=== PATIENT | male | born 1975 | race Caucasian/White ===

== ENCOUNTER 2023-09-27 09:30 | Outpatient (CLI) | payer BC, SELFPAY ==
--- NOTE | ~2023-09-27 | MR_ITS ---
EXAMINATION: MR hand RT wo con DATE: 09/27/2023 10:06 INDICATION: Metacarpophalangeal joint sprain with pain in ulnar deviation of the right second-fourth fingers post surgery 6 months prior. TECHNIQUE: Magnetic resonance imaging (MRI) of the right hand was performed without intravenous contr ast. Sequences included axial, sagittal and coronal T1-weighted FSE, coronal T2-weighted FS FSE and s agittal and coronal fluid sensitive FSE STIR . COMPARISON: None FINDINGS: Complete tear of the scapholunate ligament with widening of the scapholunate interval and dorsal inte rcalated segment instability (DISI) with increased scapholunate and lunocapitate angles. There is aty pically severe osteoarthritis with subarticular edema-like signal change at the radial scaphoid artic ulation and at the midcarpal joint consistent with secondary scapholunate advanced collapse (SLAC) wr ist. Marrow signal is otherwise normal. No fracture or pathologic marrow replacing process. Less cedrick re likely mild osteoarthritis is suggested at the radial aspect of the carpus and at multiple metacar pophalangeal and interphalangeal joints although severity of joint space narrowing would be better ev aluated with plain radiographs. No joint effusions. There is mild ulnar deviation at the right second and third metacarpophalangeal joints. Remaining met acarpal phalangeal joints are normal alignment. There is also mild palmar subluxation at the second a nd fourth metacarpophalangeal joints and moderate palmar subluxation at the third metacarpophalangeal joint. There is thickening of the radial collateral ligament complex at the second-fourth metacarpop halangeal joints without surrounding edema consistent with scarring related to chronic partial tears or degeneration. Foci of susceptibility artifact are seen at the radial side of the heads of the thir d and fourth metacarpals suggesting prior repair of the radial collateral ligament complexes. There a re no discrete fluid signal intensity tear defects appreciated. In addition there is thickening of th e radial side of the sagittal band of the third metacarpophalangeal joint with ulnar subluxation of t he third digit extensor digiti longus tendon relative to the midline of the head of the third metacar pal. The visualized portions of the flexor and extensor tendons are otherwise normal with no associat ed tenosynovitis. The intrinsic musculature of the hand is unremarkable. IMPRESSION: 1. Complete tear of the scapholunate ligament with widening of the scapholunate interval, dorsal inte rcalated segment instability (DISI) and secondary scapholunate advanced collapse (SLAC) wrist with mo derate to severe osteoarthritis at the radioscaphoid articulation and mild to moderate osteoarthritis at the midcarpal joint. 2. Thickening of the radial collateral ligament complexes at the second-fourth metacarpophalangeal zina ints as well as of the radial side of the central band of the third metacarpal phalangeal joint consi stent with partial tears without discrete fluid signal intensity tear defects. Susceptibility artifac t suggesting repairs at the metacarpal head attachments at the third and fourth metacarpophalangeal j oints. There is some residual ulnar angulation at the second and third metacarpophalangeal joints and palmar subluxation, mild at the second and fourth and moderate at the third metacarpophalangeal join t. Reviewed, dictated and finalized at location A. IMPRESSION: 1. Complete tear of the scapholunate ligament with widening of the scapholunate interval, dorsal intercalated segment instability (DISI) and secondary scaphol unate advanced collapse (SLAC) wrist with moderate to severe osteoarthritis at the radioscaphoid articulation and mild to moderate osteoarthritis at the midca rpal joint. 2
== END 2023-09-27 09:31 ==
DX: S63.652D Sprain of metacarpophalangeal joint of right middle finger, subsequent encounter (principal); X58.XXXD Exposure to other specified factors, subsequent encounter
CPT/HCPCS: 73218

== ENCOUNTER 2023-10-16 16:53 | Inpatient (IN) | payer BC, SELFPAY ==
--- NOTE | ~2023-10-16 | CT_ITS ---
EXAMINATION: CTA chest PE abdomen pel DATE: 10/16/2023 18:44 INDICATION: Shortness of breath. Elevated troponin and d-dimer. Abdominal pain. TECHNIQUE: Computed tomography (CT) pulmonary angiogram of the chest was performed with 100 mL Omnipa que-350 intravenous contrast. Additional 3D reconstructions utilizing coronal maximum intensity proje ction (MIP) were performed. CT of the abdomen and pelvis was performed with intravenous contrast util izing the same contrast bolus following a short delay. Automated exposure control and iterative recon struction technique were employed. The dose-length product was 778.56 mGy-cm. COMPARISON: None FINDINGS: Chest: No pulmonary embolism. Diffuse mild groundglass opacities and mild smooth septal line thickening at t he bilateral lung bases consistent with mild pulmonary edema. Small posterior layering right pleural effusion. At the right apex there is a small cluster of tiny pulmonary nodules suggesting tree-in-bud pattern of endobronchial spread of disease. Cardiomegaly. No pericardial effusion. Thoracic aorta is normal in caliber. No pathologically enlarged abdominal or pelvic lymphadenopathy. No pathologically enlarged thoracic lymphadenopathy. Severe lower cervical and mild to moderate thoracic spondylosis. Abdomen/pelvis: Mild diffuse edema in the intra-abdominal and body wall fat. Minimal amount of ascites in the pelvis. Small amount of pericholecystic ascites versus edematous wall thickening of the decompressed gallbla dder likely related to congestive heart failure. Liver, spleen, pancreas and bilateral adrenal glands are normal. Bilateral nephrolithiasis with 5 mm nonobstructing stone at a lower pole calyx of the ri ght kidney an 1-2 mm nonobstructing stones of the left kidney. Small peripheral wedge-shaped region o f decreased parenchymal enhancement at the lower pole of the left kidney suspicious for either infarc t or pyelonephritis. No bowel obstruction. Bladder is normal. Small fat-containing umbilical hernia. No pathologically enlarged abdominal or pelvic lymphadenopathy. Moderate to severe lower lumbar spon dylosis. L5 spondylolysis with bilateral pars interarticularis defects and 5 mm anterolisthesis L5 on S1. IMPRESSION: 1. No pulmonary embolism. 2. Cardiomegaly and likely congestive heart failure with mild pulmonary edema, small right pleural ef fusion, edema the decompressed gallbladder, extensive edema of the intra-abdominal/pelvic and body wa ll fat and minimal ascites. 3. Small geographic region of decreased parenchymal enhancement at the lower pole the left kidney whi ch could be due to infarct or pyelonephritis. Correlate with urinalysis. 4. Bilateral nonobstructing nephrolithiasis. 5. Small cluster of tiny pulmonary nodules at the apical segment of the right upper lobe with tree-in -bud pattern most likely infectious/inflammatory in etiology but would consider follow-up low-dose no ncontrast chest CT when congestive heart failure with background pulmonary edema has resolved. Reviewed, dictated and finalized at location A. IMPRESSION: 1. No pulmonary embolism. 2. Cardiomegaly and likely congestive heart failure with mild pulmonary edema, small right pleural effusion, edema the decompressed gallbladder, extensive pedro ma of the intra-abdominal/pelvic and body wall fat and minimal ascites. 3. Small geographic region of decreased parenchymal enhancement at the lower po le the left kidney which could be due to infarct or pyelonephritis. Correlate w ith urinalysis. 4. Bilateral nonobstructing nephrolithiasis. 5. Small cluster of tiny pulmonary nodules at the apical segment of the right u pper lobe with tree-in-bud pattern most likely infectious/inflammatory in etiol ogy but would consider follow-up low-dose noncontrast chest CT when c
--- NOTE | ~2023-10-16 | XR_ITS ---
EXAMINATION: XR chest 2V DATE: 10/16/2023 18:08 INDICATION: Shortness of breath TECHNIQUE: PA and lateral views of the chest were obtained. COMPARISON: None FINDINGS: Cardiomegaly with a few peripheral Ivett B-lines at the periphery of the lower lungs consistent with mild pulmonary edema. No pleural effusion or pneumothorax. The cardiomediastinal silhouette is ginny l. Moderate osteoarthritis at the right glenohumeral joint. IMPRESSION: 1. Likely congestive heart failure with cardiomegaly and mild pulmonary edema in the lower lungs. Reviewed, dictated and finalized at location A. IMPRESSION: 1. Likely congestive heart failure with cardiomegaly and mild pulmonary edema i n the lower lungs.
[2023-10-16 16:55] VITALS: BP 131/78; PULSE 110; RESP 20; TEMP 36.4; O2SAT 100
--- NOTE | 2023-10-16 17:38 | ED.SOB ---
HPI - SOB/Dyspnea General Chief Complaint: Shortness of Breath/Dyspnea <BERNIE Espinoza Last Filed: 10/16/23 19:11> Stated Complaint: sob <BERNIE Espinoza Last Filed: 10/16/23 19:11> Time Seen by Provider: 10/16/23 17:39 <BERNIE Espinoza Last Filed: 10/16/23 19:11> Focused HPI: Patient is a 48 y/o male who presents to the ED with c/o SOB. Patient reports over the last 2 months, he has had intermittent episodes of rapid breathing, shortness of breath, feeling as though he needs to hyperventilate to get enough air. Episodes last approx 20-30 seconds at a time, report 10+ episodes per day. Denies any aggravating/inciting factors, states it can occur with exertion and at rest. He does admit he has been under increased stress lately. Recently had R hand surgery/tendon repair in [place]. Flew back yesterday. Saw his PCP today and was referred to the ED for further evaluation and to r/o blood clots. Denies hx of blood clots or heart disease. Denies BLE pain or swelling. Does also c/o some upper abdominal pain and bloating, N/V/D. States his stomach has felt uneasy since being on narcotic pain medication from his hand surgeries. GENERAL: Mildly anxious-appearing, well-nourished, and in no acute distress. HEAD: Normocephalic, atraumatic. CHEST: Clear to auscultation. ?No respiratory distress. No focal lung sounds. HEART: Tachycardic with regular rhythm.? ABD: Mild tenderness in epigastric region. No rebound. Normoactive BS. NEURO: ?Alert and oriented x3. Patient screened in triage and initial orders placed.? ?Additional care and disposition to be based upon?diagnostic testing and treatment. <BERNIE Espinoza Last Filed: 10/16/23 19:11> Source: patient <BERNIE Espinoza Last Filed: 10/16/23 19:11> Mode of arrival: ambulatory <BERNIE Espinoza Filed: 10/16/23 19:11> Limitations: no limitations <Edith Em PA-C - Last Filed: 10/16/23 19:11> History of Present Illness HPI Narrative: Patient is a 48-year-old male here with shortness of breath. Notes that over the last 2 months he has had intermittent episodes of shortness of breath. He notes that it feels as though he was holding his breath under water and then gasps for air. He notes that it seems to be increasing in frequency with episodes lasting 8-10 seconds at a time. He does note that it seems to be worse when he tries to lay down go to sleep at night. He has been sleeping semi upright. He denies any lower extremity edema or calf pain. No prior history of PE or DVT. No prior cardiac history. Of note he has been dealing with a recent orthopedic issues. He reportedly had a old injury from 20 years ago due to playing hockey. He had a surgery here on March 26, 2023 however was not satisfied with his results and sought the care of a specialist in [place]. He had wrist surgery on the right side on 10/02/2023. He flew down again to have a pin removed from this right hand yesterday. No personal or family history of coronary artery disease. Has been taking couple of doses of opiate pain medications since the surgery at the beginning of the month, he has had some associated GI upset since that time. He endorses some constipation as well as a generalized upset feeling of his stomach. He notes that his shortness of breath does seem to be associated with some acid reflux symptoms. He has been taking Tums without improvement. <Krystal Shah MD - Last Filed: 10/16/23 19:39> Related Data Allergies/Adverse Reactions: Allergies Allergy/AdvReac Type Severity Reaction Status Date / Time No Known Allergies Allergy Verified 10/16/23 17:58 <Edith Em PA-C - Last Filed: 10/16/23 19:11> Review of Systems Review of Systems: All systems reviewed & are unremarkable except as noted in HPI and below <Krystal Shah MD - Last Filed: 10/16/23 19:39> Exam Narrativ
--- NOTE | 2023-10-16 17:41 | ECG_ITS ---
SEE SCANNED COPY FOR CONFIRMED REPORT MTDD
[2023-10-16 17:55] LABS: Basophils Absolute Auto 0.1 K/mm3 (0.0-0.1); Basophils Percent Auto 0.8 % (0.2-1.2); Eosinophils Absolute Auto 0.1 K/mm3 (0-0.3); Eosinophils Percent Auto 0.6 % (0-4.4); Hematocrit 51.7 % (42.0-52.0); Hemoglobin 18.3 g/dL (14.0-18.0); Immature Granulocyte Absolute 0.06 K/mm3 (0.00-0.031); Immature Granulocyte Percent A 0.6 % (0-0.5); Immature Platelet Fraction Pct 6.6 % (0.9-11.2); Lymphocytes Absolute Auto 1.03 K/mm3 (0.9-3.2); Lymphocytes Percent Auto 10.4 % (18.3-44.2); Mean Corpuscular HGB Conc 35.4 g/dl (32-36); Mean Corpuscular Hemoglobin 35.1 pg (26-34); Mean Platelet Volume 11.2 fl (7.4-10.4); Monocytes Absolute Auto 0.7 K/mm3 (0.1-0.6); Monocytes Percent Auto 7.1 % (2.6-8.5); Neutrophils Percent Auto 80.5 % (45.5-73.1); Platelet Count Result 127 k/mm3 (150-375); Red Blood Count 5.22 M/mm3 (4.6-6.20); Red Cell Distribution Width 12.1 % (11.5-14.5); White Blood Count 9.9 K/mm3 (4.5-10.0)
[2023-10-16] MEDS: Please add drug allergy info to patient profile. 1 EACH XX (17:58)
[2023-10-16] MEDS: BELLADONNA ALK/PHENOB ELIX 10 ML, MAG HYDROX/ALUMINUM HYD/SIMETH 30 ML, LIDOCAINE HCL 2... PO (17:58)
[2023-10-16 18:04] LABS: INR 1.2; Partial Thromboplastin Time 26.8 Seconds (22.3-36.8); Prothrombin Time 15.7 Seconds (11.1-14.7)
[2023-10-16 18:05] LABS: Alanine Aminotransferase 77 U/L (6-50); Albumin Level 3.9 g/dL (3.5-5.1); Alkaline Phosphatase 55 U/L (38-126); Anion Gap 11 mmol/L (4-12); Aspartate Amino Transferase 58 U/L (17-59); Bilirubin,Total 1.2 mg/dL (0.2-1.3); Blood Urea Nitrogen 21 mg/dL (9-20); Calcium 9.6 mg/dL (8.4-10.2); Carbon Dioxide 20 mmol/L (22-30); Chloride 104 mmol/L (98-107); Estimated CRCL calculation 88 ml/min; Estimated Glomerular Filt Rate > 60; Glucose 109 mg/dL (65-110); Lipase 54 U/L (23-300); Magnesium 1.5 mg/dL (1.6-2.3); Potassium 4.2 mmol/L (3.4-5.0); Sodium 135 mmol/L (137-145)
[2023-10-16 18:21] LABS: D Dimer 6.98 ug/mL (<0.48)
[2023-10-16 18:22] LABS: NT Pro B Type Natriuretic Pept 5990 pg/mL (19.9-100); Troponin I 0.333 ng/mL (0.000-0.034)
[2023-10-16] MEDS: MAGNESIUM SULF 2 GM/WATER 50ML 2 GM/50 ML BAG IVPB (18:47)
[2023-10-16] MEDS: ASPIRIN 81 MG CHEWABLE TABLET 324 MG PO (18:47)
[2023-10-16] MEDS: FUROSEMIDE INJ 40 MG/4 ML VIAL IV PUSH (19:33)
[2023-10-16 19:53] LABS: Appearance Urine Clear (Clear); Bacteria Urine None Seen /hpf; Bilirubin Urine Negative (Negative); Blood Urine Negative (Negative); Color Urine Yellow (Yellow); Glucose Urine UA Negative (Negative); Ketones Urine Negative (Negative); Leukocyte Esterase Ur Negative LEU/UL (Negative); Nitrate Urine Negative (Negative); Non Pathogenic Casts 0-2; Protein Urine Trace mg/dL (Negative); RBC Urine 0-2 /hpf (0-2); Squamous Epithelial Cell Urine None Seen /hpf (Few); WBC Urine 0-5 /hpf (0-3); pH Urine 5.5 (5.0-9.0)
[2023-10-16 19:54] LABS: Add Urine Microscopic? YES; Specific Grav Ur 1.062 (1.001-1.035)
[2023-10-16 19:54] LABS: CRP 0.7 mg/dL (<1.0)
--- NOTE | 2023-10-16 20:05 | PM.IMHP ---
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 But his shortness of breath is going to typical for him as he is unable to hold his breath even while serving. Patient denied any history of any heart disease any history of any congestive heart failure no history of any viral infections. Denies any fever chills nausea vomiting diarrhea hematemesis hemoptysis no dizziness no lower extremity swelling. But he did notice that his abdominal girth has increased and he felt there was some swelling around the abdominal wall few days ago. No history of any tachycardia no history of any lower extremity edema no history of sleep apnea Review of Systems Review of Systems: All systems reviewed & are unremarkable except as noted in HPI and below Meds Home Medications and Allergies Allergies Allergy/AdvReac Type Severity Reaction Status Date / Time No Known Allergies Allergy Verified 10/16/23 17:58 Vital Signs Vital Signs - 24 hr 10/16/23 16:55 Temperature 36.4 C L Pulse Rate 110 H Respiratory Rate 20 Blood Pressure 131/78 Pulse Oximetry 100 Oxygen Delivery Room Air Exam Narrative: GENERAL: Well appearing, no acute distress. HEAD: Normocephalic, atraumatic. NECK: Supple. No adenopathy, no masses. RESPIRATORY: respirations nonlabored. , no rales, wheezing. CARDIOVASCULAR: Regular rate and rhythm without murmurs, . Peripheral pulses 2+ and equal bilaterally. ABDOMINAL: Soft, nontender, nondistended, no hepatosplenomegaly. Normoactive BS. MUSCULOSKELETAL: no Epigastric and no hypochondrial tenderness SKIN: Warm, dry, NEURO: A&O X3. Moves all extremities H&P: Results Labs Labs: Short CBC 10/16/23 Range/Units 17:45 WBC 9.9 (4.5-10.0) K/mm3 Hgb 18.3 H (14.0-18.0) g/dL Hct 51.7 (42.0-52.0) % Plt Count 127 L (150-375) k/mm3 [facility] 10/16/23 17:45 Sodium 135 L Potassium 4.2 Chloride 104 Carbon Dioxide 20 L BUN 21 H Creatinine 1.00 Glucose 109 Calcium 9.6 Cardiac Enzymes 10/16/23 Range/Units 17:45 Troponin I 0.333 H* (0.000-0.034) ng/mL Liver Function 10/16/23 Range/Units 17:45 Total Bilirubin 1.2 (0.2-1.3) mg/dL AST 58 (17-59) U/L ALT 77 H (6-50) U/L Alkaline Phosphatase 55 (38-126) U/L Albumin 3.9 (3.5-5.1) g/dL Urine 10/16/23 Range/Units 19:36 Urine Color Yellow (Yellow) Urine Appearance Clear (Clear) Urine pH 5.5 (5.0-9.0) Ur Specific [place] 1.062 H (1.001-1.035) Urine Protein Trace (Negative) mg/dL Urine Glucose (UA) Negative (Negative) mg/dL Assessment and Plan Assessment and plan (1) New onset of congestive heart failure: Code(s): I50.9 - Heart failure, unspecified Status: Acute (2) Elevated troponin: Code(s): R79.89 - Other specified abnormal findings of blood chemistry Status: Acute (3) Hypomagnesemia: Code(s): E83.42 - Hypomagnesemia Status: Acute Plan CHF /non STEMI /positive troponin workup still in progress not sure if this EKG BNP 6000 Chest x-ray Lipid panel, TSH,liver function test, TTE ordered a stat patient may need a cardiac catheterization/ cardiac MRI after 2D echo results will have Cardiology follow positive troponins due to demand ischemia check sed rate seat and C-reactive protein Optimize Jos inhibitors and beta-blockers Daily weights Antiplatelet & Statin therapy as advised by Cardiology Loop diuretics as indicate Patient educated about titrating diuretics at home based on weight blood pressure and symptoms. Optimize b
[2023-10-16 20:12] LABS: Erythrocyte Sedimentation Rate 1 mm/hr (0-20)
--- NOTE | 2023-10-16 20:40 | PC.NURSE ---
This patient, Alfonso Brooks, was admitted to IMU Room 202-01. Patient/family oriented to hospital policies and general routines including ID bracelet, bed and alarms, visiting hours, pain management, procedures, bathroom and other care routines, personal items, smoking policy, room service/diet, and visiting hours. Information on how to activate the Rapid Response Team has been discussed. Patient/Family are encouraged to report perceived risks to care and to ask questions if they do not understand what they are told or what they should do.
[2023-10-16 20:50] VITALS: BP 113/71; PULSE 104; RESP 16; TEMP 37.7; O2SAT 100
[2023-10-16 20:51] VITALS: BMI 25.0
--- NOTE | 2023-10-16 20:51 | ECG_ITS ---
SEE SCANNED COPY FOR CONFIRMED REPORT MTDD
[2023-10-16 20:53] VITALS: PULSE 105
[2023-10-16 20:55] LABS: Procalcitonin 0.1 ng/mL
[2023-10-16 21:03] LABS: Influenza A QL RT-PCR Negative (Negative); Influenza B QL RT-PCR Negative (Negative); RSV RNA, RT-PCR Negative (Negative); SARS-CoV-2 RNA PCR Negative (Negative)
[2023-10-16 21:52] LABS: NT Pro B Type Natriuretic Pept 5990 pg/mL (19.9-100)
[2023-10-16 22:00] VITALS: PULSE 111
[2023-10-16 22:08] LABS: Troponin I 0.761 ng/mL (0.000-0.034)
[2023-10-16 22:50] VITALS: BP 93/69; O2SAT 97
[2023-10-16] MEDS: DEXTROSE 5%/0.45% SOD CHL 1,000 ML 100 ML IV CONT (23:11)
[2023-10-16] MEDS: PANTOPRAZOLE SODIUM IV 40 MG VIAL IV PUSH (23:11)
[2023-10-16 23:40] VITALS: BP 101/75; PULSE 111; RESP 18; TEMP 36.5; O2SAT 98
[2023-10-17] VITALS (20 sets, daily range): BP systolic 99–115; BP diastolic 66–74; PULSE 102–120; RESP 15–28; TEMP 36.4–37.2; O2SAT 93–100
[2023-10-17] MEDS: LORazepam INJ (*CRX) 2 MG/ML VIAL 1 MG IV PUSH (00:24)
[2023-10-17 04:41] LABS: Troponin I 0.998 ng/mL (0.000-0.034)
--- NOTE | 2023-10-17 06:00 | ECHO_ITS ---
Patient Info Name: Alfonso Brooks Age: 48 years : 1975 Gender: Male Ht: 72 in Wt: 184 lbs BSA: 2.07 m2 HR: 102 bpm BP: 103 / 66 mmHg Technical Quality: Good Exam Date: 10/17/2023 8:05 AM Exam Location: Echo Lab Patient Status: Inpatient Admit Date: 10/16/2023 Staff Ordering Physician: Krystal Shah MD Fish Net Stringer: Gurjit Tello RDCS Attending Provider: Luis Guerrero MD Exam Type: CA echo dop color flow w con Study Info Indications - new onset heart failure Complete two-dimensional, color flow and Doppler transthoracic echocardiogram is performed with contrast to opacify the left ventricle and to improve the deliniation of the left ventricle endocardial borders. Contrast/Agitated Saline Contrast/Ag. Saline: Definity Amount: 8.00 ml Summary 1. Definity contrast administered improved wall motion interpretation. 2. Left ventricular chamber dimension is severely enlarged. 3. Left ventricular systolic function is severely globally reduced, estimated at <15%. 4. Two apical thrombus noted. 5. The left ventricular diastolic function is abnormal. 6. E/e' 10 is mildly elevated. 7. Right ventricular chamber dimension is moderately enlarged. 8. Right ventricular systolic function is reduced and with abnormal TAPSE 1.4 cm. 9. Left atrial chamber dimension is severely enlarged. 10. Right atrial chamber dimension is moderately enlarged. 11. There is mild to moderate aortic valve regurgitation. 12. There is mild to moderate mitral valve regurgitation. 13. There is mild tricuspid valve regurgitation. 14. Mobile mass adherent to TV papillary muscle and to septal leaflet of tricuspid valve could be vegetation or thrombus, but favors thrombi given poor RV function. 15. Severe pulmonary hypertension, estimated pulmonary arterial systolic pressure is 60 mmHg. 16. There is trace pulmonic regurgitation. 17. Dilated inferior vena cava with <50% collapse upon inspiration consistent with significantly elevated right atrial pressure, 15 mmHg. Left Ventricle Definity contrast administered improved wall motion interpretation. E/e' 10 is mildly elevated. Two apical thrombus noted. Left ventricular systolic function is severely globally reduced, estimated at <15%. Left ventricular chamber dimension is severely enlarged. The left ventricular diastolic function is abnormal. Right Ventricle Right ventricular systolic function is reduced and with abnormal TAPSE 1.4 cm. Right ventricular chamber dimension is moderately enlarged. Left Atria Left atrial chamber dimension is severely enlarged. Right Atria Right atrial chamber dimension is moderately enlarged. Aortic Valve The aortic valve is trileaflet. There is no aortic valve stenosis. There is mild to moderate aortic valve regurgitation. Pulmonic Valve There is trace pulmonic regurgitation. Mitral Valve There is no mitral valve stenosis. There is mild to moderate mitral valve regurgitation. Tricuspid Valve Mobile mass adherent to TV papillary muscle and to septal leaflet of tricuspid valve could be vegetation or thrombus, but favors thrombi given poor RV function. There is mild tricuspid valve regurgitation. Severe pulmonary hypertension, estimated pulmonary arterial systolic pressure is 60 mmHg. Pericardium/Pleural There is no pericardial effusion. Inferior Vena Cava Dilated inferior vena cava with <50% collapse upon inspiration consistent with significantly elevated right atrial pressure, 15 mmHg. Aorta The aortic root size at the sinus of Valsalva is normal. Left
[2023-10-17] MEDS: PANTOPRAZOLE 40 MG TABLET PO (08:35)
[2023-10-17] MEDS: MAGNESIUM OXIDE 400 MG TABLET PO (08:35)
[2023-10-17] MEDS: PERFLUTREN LIPID MICROSPHERES 1.5 ML VIAL DILUTED TO 10 ML TOTAL VOLUME IV PUSH (08:41)
--- NOTE | 2023-10-17 08:41 | IVDEFINITY ---
Prior to administration of IV Definity the patient was educated on the risks and benefits of the imaging enhancing agent including potential adverse side effects. The patient verbalized understanding. Allergies were verified. No exclusion criteria were identified and at least one of the following inclusion criteria were met: 1) physician request, 2) patient technically difficult to image (per the [place] [employer] guidelines of two or more segments not discernable within the apical view), or 3) questionable left ventricular function. ?
[2023-10-17 09:15] LABS: Basophils Absolute Auto 0.1 K/mm3 (0.0-0.1); Basophils Percent Auto 1.1 % (0.2-1.2); Eosinophils Absolute Auto 0.1 K/mm3 (0-0.3); Eosinophils Percent Auto 0.9 % (0-4.4); Hematocrit 50.3 % (42.0-52.0); Hemoglobin 17.4 g/dL (14.0-18.0); Immature Granulocyte Absolute 0.05 K/mm3 (0.00-0.031); Immature Granulocyte Percent A 0.7 % (0-0.5); Lymphocytes Absolute Auto 1.34 K/mm3 (0.9-3.2); Lymphocytes Percent Auto 17.8 % (18.3-44.2); Mean Corpuscular HGB Conc 34.6 g/dl (32-36); Mean Corpuscular Hemoglobin 34.9 pg (26-34); Mean Corpuscular Volume 100.8 fl (80-100); Mean Platelet Volume 11.6 fl (7.4-10.4); Monocytes Absolute Auto 0.6 K/mm3 (0.1-0.6); Monocytes Percent Auto 8.4 % (2.6-8.5); Neutrophils Absolute Auto 5.4 K/mm3 (1.3-6.7); Neutrophils Percent Auto 71.1 % (45.5-73.1); Platelet Count Result 129 k/mm3 (150-375); Red Blood Count 4.99 M/mm3 (4.6-6.20); Red Cell Distribution Width 12.4 % (11.5-14.5); White Blood Count 7.5 K/mm3 (4.5-10.0)
[2023-10-17 09:33] LABS: Alanine Aminotransferase 71 U/L (6-50); Albumin Level 3.5 g/dL (3.5-5.1); Alkaline Phosphatase 51 U/L (38-126); Anion Gap 7 mmol/L (4-12); Aspartate Amino Transferase 51 U/L (17-59); Bilirubin,Total 0.9 mg/dL (0.2-1.3); Blood Urea Nitrogen 21 mg/dL (9-20); Calcium 8.8 mg/dL (8.4-10.2); Carbon Dioxide 23 mmol/L (22-30); Chloride 103 mmol/L (98-107); Estimated CRCL calculation 80 ml/min; Estimated Glomerular Filt Rate > 60; Glucose 152 mg/dL (65-110); Potassium 3.7 mmol/L (3.4-5.0); Sodium 133 mmol/L (137-145)
[2023-10-17] MEDS: LORazepam (*CRX) 0.5 MG TABLET PO (11:51)
--- NOTE | 2023-10-17 12:20 | PM.CNCAR ---
Assessment and Plan Assessment and plan (1) New onset of congestive heart failure: Code(s): I50.9 - Heart failure, unspecified Status: Acute Plan 48-year-old man with: Newly diagnosed severe cardiomyopathy patient has four-chamber dilation with severe left and right ventricular systolic function and stigmata of low cardiac output including LV apical thrombus as well as the unusual finding of mid right ventricular thrombus apparently adherent/associated with the tricuspid valve support apparatus. He will be started on guideline directed medical therapy for congestive heart failure gradually low dosages. He also needs to be systemic anticoagulated I am going to start him on apixaban for this as well. I will consult Juan Manuel to initiate a life vest which he will need at the time of discharge. Because of his relatively young age in very poor cardiac function I am going also to initiate a referral to the Advanced [facility] failure group at [place] as their assistance might be necessary if he does not improve response to medical therapy Tyrone Machado MD [facility] History of Present Illness History of Present Illness Consult date/time: 10/17/23 12:20 Reason For Visit: New Onset Heart Failure/Elevated Troponin Narrative: This is a very pleasant 48-year-old man I am seeing at the request of the hospitalist today because of the newly diagnosed onset of congestive heart failure. The patient is unknown to me prior to this consult and from the chart really has been seen by physicians here as he has generally been enjoying good health most of his life. He states that he began to notice symptoms of shortness of breath with exertion about 2 months ago. The symptoms have gradually worsened with less and less activity causing dyspnea. This is got to the point were daily activities around his home have resulted in him having to stop to rest for shortness of breath. In the last 2 weeks he has noticed the onset of nocturnal dyspnea and orthopnea. The last several nights he has not gotten any sleep at all at home because of shortness of breath providing him from lying down. He is not experiencing any lower extremity edema chest pain palpitations or syncope. He has no history of hypertension dyslipidemia diabetes no history of cigarette smoking. He is on no home medications. He has had a couple of operations recently on his right hand related to an injury that he sustained playing hockey. He recently was seeing orthopedic new home sales consultant done in [place] for an operation to remove some hardware from the hand and he has the right hand and arm still in a cast from that operation. The patient's emergency room evaluation yesterday when he came in with the symptoms demonstrated clear evidence of enlargement of the cardiac silhouette on chest x-ray and some modest bilateral congestion. He was otherwise in no significant distress. He does not recall any significant incidence of chest pain he does not recall any significant respiratory or febrile illness over the last jeffrey in winter. He states his father has history of valvular heart disease and has undergone surgery for that 1 of his brothers has an arrhythmia of some sort he is not sure of any of the details of that. He is , lives by himself he works for [employer] echocardiogram was done this morning which demonstrates four-chamber cardiac dilation with very poor left and right ventricular systolic function and left ventricular apical thrombus as well as right ventricular clot associated with the tricuspid valve chordal apparatus. Review of Systems Constitutional: Constitutional: Reports fatigue Eyes: Eyes: Reports no additional eye complaints ENT: Reports system reviewed and no additional complaints, except as documented Cardiovascular: Cardiovascular: Reports as per HPI Respiratory: Respiratory: Reports as per HPI and Reports dyspnea on exertion Gastrointestinal: Gastrointestinal: Reports no additional
--- NOTE | 2023-10-17 15:46 | PC.NURSE ---
Patient and family requesting to be transferred to [facility]. Family stated they spoke with a waiter/waitress third class willing to accept the patient. This nurse wrote down the name and number of the accepting physician stated by family and gave the information to Dr. Lr who stated he will take care of it.
[2023-10-17] MEDS: PROCHLORPERAZINE EDISYLATE 10 MG/2 ML VIAL 5 MG IV PUSH (16:07)
--- NOTE | 2023-10-17 16:14 | PM.IMPN ---
Progress Note: A&P Assessment and Plan (1) New onset of congestive heart failure: Code(s): I50.9 - Heart failure, unspecified Status: Acute (2) Elevated troponin: Code(s): R79.89 - Other specified abnormal findings of blood chemistry Status: Acute Assessment and Plan: Likely 2/2 demand-ischemia from CHF (3) Hypomagnesemia: Code(s): E83.42 - Hypomagnesemia Status: Acute (4) Intracardiac thrombus: Code(s): I51.3 - Intracardiac thrombosis, not elsewhere classified Status: Acute (5) NSTEMI (non-ST elevated myocardial infarction): Code(s): I21.4 - Non-ST elevation (NSTEMI) myocardial infarction Status: Acute Plan Acute and principal conditions 1. CHFrEF; EF 15% 2. Hyponatremia 3. Thrombocytopenia 4. Hypomagnesemia 5. Apical thombi, intracardiac. Two apical thrombus noted. Rx: 1. Entresto, Eliquis 2. Replete and monitor Mg 3. Transfer to [facility] via the Cardiology unit; 10/17/23: Discussed with Dr. Johnathon Burton who graciously accepted the patient Chronic and stable conditions 1. GERD. on PPI ECHO: ? 1. Definity contrast administered improved wall motion interpretation. ? 2. Left ventricular chamber dimension is severely enlarged. ? 3. Left ventricular systolic function is severely globally reduced, estimated at <15%. ? 4. Two apical thrombus noted. ? 5. The left ventricular diastolic function is abnormal. ? 6. E/e' 10 is mildly elevated. ? 7. Right ventricular chamber dimension is moderately enlarged. ? 8. Right ventricular systolic function is reduced and with abnormal TAPSE 1.4 cm. ? 9. Left atrial chamber dimension is severely enlarged. ? 10. Right atrial chamber dimension is moderately enlarged. ? 11. There is mild to moderate aortic valve regurgitation. ? 12. There is mild to moderate mitral valve regurgitation. ? 13. There is mild tricuspid valve regurgitation. ? 14. Mobile mass adherent to TV papillary muscle and to septal leaflet of tricuspid valve could be vegetation or thrombus, but favors thrombi given poor RV function. ? 15. Severe pulmonary hypertension, estimated pulmonary arterial systolic pressure is 60 mmHg. ? 16. There is trace pulmonic regurgitation. ? 17. Dilated inferior vena cava with <50% collapse upon inspiration consistent with significantly elevated right atrial pressure, 15 mmHg. Code status. Full VTE prophylaxis. SCDs; Eliquis Nutrition. 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 Patient states he has been traveling quite a bit recently to [place] for a corrective surgery for his right wrist but also has been under lot of stress from his business and work.? But his shortness of breath is going to typical for him as he is unable to hold his breath even while serving.? Patient denied any history of any heart disease any history of any congestive heart failure no history of any viral infections.? Denies any fever chills nausea vomiting diarrhea hematemesis hemoptysis no dizziness no lower extremity swelling.? But he did notice that his abdominal girth has increased and he felt there was some swelling around the abdominal wall few days ago.? No history of any tachycardia no history of any lower extremity edema no history of sleep apnea Triage vitals show tachycardia, otherwise normal. Lab work reviewed. CBC shows hemoconcentration with HGB of 18.3, d-dimer elevated at 6.98, CMP grossly normal. Low magnesium. Troponin elevated at 0.333, BNP elevated at 5990. CXR shows likely CHF with mild pulmonary edema. CTA and abdomen pelvis pending. Patient seen evaluated, nontoxic appearing.? Mild increased work of breathing with conversation
[2023-10-17 18:04] LABS: Magnesium 1.7 mg/dL (1.6-2.3)
[2023-10-17] MEDS: SACUBITRIL/VALSARTAN 24-26 MG TABLET 1 TAB PO (20:18)
[2023-10-17] MEDS: APIXABAN 5 MG TABLET PO (20:18)
--- NOTE | 2023-10-17 20:33 | PC.NURSE ---
Called and spoke to Kari at [facility] transfer ctr to update on patient condition. Pt is more symptomatic and was placed on cpap autotitrate with a 2L bleed in. Most current vitals reported. Pt is accepted by a physician, but no bed is available at this time.
[2023-10-18] VITALS (19 sets, daily range): BP systolic 81–98; BP diastolic 48–67; PULSE 83–107; RESP 12–30; TEMP 35.9–37.3; O2SAT 95–99
--- NOTE | 2023-10-18 01:42 | P.PNCROSS_ITS ---
Event Note Event Note Event Note: 10/18/2023 just before midnight Nursing staff called because are concerned that the patient did not look great. Patient's blood pressures were stable. But patient is having episodes of apnea while sleeping. Patient has had were dropping down 80%. Patient was not diaphoretic. However his heart rate would climb into the 120s when he would drop his oxygen saturations. His girlfriend was at bedside and was concerned. I ordered BiPAP. Rocha the patient have time on BiPAP and then went and evaluated the patient before midnight. The patient reports that he feels more comfortable on the BiPAP. He has not had any further episodes of desaturations. BiPAP settings were provided for goal tidal volumes of 450-500. Starting at pressures of 10/5 and rate of 12. Patient did not initially tolerate the rate of 12 and his rate was increased after he settled down on the BiPAP. I spent significant amount of additional time discussing why we are waiting for bed at [facility] with patient's girlfriend. She requested repeat echocardiogram I tried to discuss with her that the utility of repeat echo this October would not be beneficial. I discussed the pathophysiology of anticoagulants in treating the patient's ventricular thrombus. Patient's heart rate did improve with BiPAP usage in is now in the low 90s. Patient's blood pressures are slightly lower currently after receiving Entresto but maps are maintained. 35 minute spent in critical care activities. Due to a high probability of clinically significant, life threatening deterioration, the patient required my highest level of preparedness to intervene emergently and I personally spent this critical care time directly and personally managing the patient. This critical care time included obtaining a history; examining the patient; pulse oximetry; ordering and review of studies; arranging urgent treatment with development of a management plan; evaluation of patient's response to treatment; frequent reassessment; and discussions with other providers. It was exclusive of separately billable procedures and treating other patients and teaching time. Please see Assessment and Plan section and the rest of the note for further information on patient assessment and treatment.
--- NOTE | 2023-10-18 09:01 | PM.PNCARD ---
Progress Note: A&P Assessment and Plan (1) Cardiomyopathy: Code(s): I42.9 - Cardiomyopathy, unspecified Status: Acute Plan 48-year-old man with: Unfortunate diagnosis of severe dilated cardiomyopathy which almost certainly is a post viral event given his recollection of a significant febrile respiratory illness back in the winter. He symptomatic Margot has improved much since yesterday in response to initiation of guideline directed medical therapy. This will be continued today. His blood pressure is marginal so I will not advance the dosages of his medications today. He is systemically anticoagulated with apixaban because of intracardiac thrombus. He has been accepted to [facility] at the request of he and his family to be transferred for a higher level of care/more advanced heart failure center. His transfer to that facility is pending bed availability. The patient and the family were asking questions about ischemia evaluation. Explained to them that this does need to occur however the priority is hemodynamic stabilization. Because of his need for systemic anticoagulation a CT angiogram or a nuclear stress would be the likely means of ischemia testing. Tyrone Machado MD [facility] Subjective Date/time seen: Date of service: 10/18/23 09:01 Interval history: Follow-up visit in this 48-year-old man with: Newly diagnosed severe cardiomyopathy with symptoms of congestive heart failure and low cardiac output insidious onset for the last 1-2 months. The patient does remember today a respiratory viral type illness with a fever that occurred back in late May or early June. He appears much more comfortable than he was yesterday not currently having any respiratory distress and visiting with his girlfriend. Exam Const: General: comfortable and no acute distress HENMT: Mouth: Yes moist mucous membranes Eyes: Sclera: sclerae normal Neck: Neck: supple Resp: Effort & Inspection: normal respiratory effort Auscultation: clear to auscultation bilaterally Cardio: Rate: regular rate Rhythm: regular rhythm Other: S3 gallop is noted no audible murmur GI: GI Palp: Yes Soft to palpation Auscultation: normal bowel sounds Skin: General skin exam: normal color Neuro: Other: Alert and oriented x3 Extrem: Other: There is no edema, distal pulses are normal Objective Data Vital Signs Vital Signs: Vital Signs - 24 hr 10/17/23 10:00 10/17/23 11:49 10/17/23 16:00 Temperature 36.4 C 37.2 C Pulse Rate 107 H 116 H 114 H Respiratory Rate 16 28 H Blood Pressure 104/67 106/74 Pulse Oximetry 100 95 Oxygen Delivery Oxygen Flow Rate 10/17/23 16:00 10/17/23 12:00 10/17/23 14:00 Temperature Pulse Rate 117 H 114 H 108 H Respiratory Rate Blood Pressure Pulse Oximetry Oxygen Delivery Oxygen Flow Rate 10/17/23 12:00 10/17/23 16:00 10/17/23 18:00 Temperature Pulse Rate 113 H Respiratory Rate Blood Pressure Pulse Oximetry 94 Oxygen Delivery Room Air Nasal Cannula Oxygen Flow Rate 2 10/17/23 19:49 10/17/23 20:00 10/17/23 20:28 Temperature 36.4 C Pulse Rate 120 H 115 H 114 H Respiratory Rate 20 24 H 15 Blood Pressure 99/71 L 115/71 Pulse Oximetry 96 93 97 Oxygen Delivery Autopap Oxygen Flow Rate 10/17/23 20:30 10/17/23 21:36 10/17/23 20:00 Temperature Pulse Rate 108 H Respiratory Rate 18 Blood Pressure 102/74 Pulse Oximetry 97 99 97 Oxygen Delivery Autopap Nasal Cannula Oxygen Flow Rate 2 3 10/18/23 00:00 10/18/23 00:00 10/18/23 00:42 Temperature 36.2 C L Pulse Rate 96 107 H Respiratory Rate 20 12 Blood Pressure 98/62 L Pulse Oximetry 96 96 Oxygen Delivery BiPAP BiPAP Oxygen Flow Rate 2 10/17/23 20:00 10/17/23 22:00 10/18/23 00:00 Temperature Pulse Rate 110 H 114 H 96 Respiratory Rate Blood Pressure Pulse Oximetry Oxygen Delivery Oxygen Flow Rate
[2023-10-18] MEDS: SPIRONOLACTONE 25 MG TABLET PO (09:44)
[2023-10-18] MEDS: PANTOPRAZOLE 40 MG TABLET PO (09:44)
[2023-10-18] MEDS: SACUBITRIL/VALSARTAN 24-26 MG TABLET 1 TAB PO ×2 (09:44→20:18)
[2023-10-18] MEDS: METOPROLOL SUCCINATE EXT REL 25 MG TABCR PO (09:44)
[2023-10-18] MEDS: MAGNESIUM OXIDE 400 MG TABLET PO (09:45)
[2023-10-18] MEDS: APIXABAN 5 MG TABLET PO ×2 (09:45→20:18)
[2023-10-18] MEDS: EMPAGLIFLOZIN 10 MG TABLET PO (09:45)
[2023-10-18 09:55] LABS: Anion Gap 6 mmol/L (4-12); Blood Urea Nitrogen 21 mg/dL (9-20); Calcium 8.7 mg/dL (8.4-10.2); Carbon Dioxide 28 mmol/L (22-30); Chloride 100 mmol/L (98-107); Estimated CRCL calculation 74 ml/min; Estimated Glomerular Filt Rate > 60; Glucose 108 mg/dL (65-110); Potassium 4.3 mmol/L (3.4-5.0); Sodium 134 mmol/L (137-145)
--- NOTE | 2023-10-18 18:39 | PM.IMPN ---
Progress Note: A&P Assessment and Plan (1) New onset of congestive heart failure: Code(s): I50.9 - Heart failure, unspecified Status: Acute (2) Elevated troponin: Code(s): R79.89 - Other specified abnormal findings of blood chemistry Status: Acute Assessment and Plan: Likely 2/2 demand-ischemia from CHF (3) Hypomagnesemia: Code(s): E83.42 - Hypomagnesemia Status: Acute (4) Intracardiac thrombus: Code(s): I51.3 - Intracardiac thrombosis, not elsewhere classified Status: Acute (5) NSTEMI (non-ST elevated myocardial infarction): Code(s): I21.4 - Non-ST elevation (NSTEMI) myocardial infarction Status: Acute Plan Acute and principal conditions 1. CHFrEF; EF 15% 2. Hyponatremia 3. Thrombocytopenia 4. Hypomagnesemia 5. Apical thombi, intracardiac. Two apical thrombus noted. Rx: 1. Entresto, Eliquis 2. Replete and monitor Mg 3. Transfer to [facility] via the Cardiology unit; 10/17/23: Discussed with Dr. Johnathon Burton who graciously accepted the patient 10/18/2023: Patient awaiting transfer to [facility] Chronic and stable conditions 1. GERD. on PPI ECHO: ? 1. Definity contrast administered improved wall motion interpretation. ? 2. Left ventricular chamber dimension is severely enlarged. ? 3. Left ventricular systolic function is severely globally reduced, estimated at <15%. ? 4. Two apical thrombus noted. ? 5. The left ventricular diastolic function is abnormal. ? 6. E/e' 10 is mildly elevated. ? 7. Right ventricular chamber dimension is moderately enlarged. ? 8. Right ventricular systolic function is reduced and with abnormal TAPSE 1.4 cm. ? 9. Left atrial chamber dimension is severely enlarged. ? 10. Right atrial chamber dimension is moderately enlarged. ? 11. There is mild to moderate aortic valve regurgitation. ? 12. There is mild to moderate mitral valve regurgitation. ? 13. There is mild tricuspid valve regurgitation. ? 14. Mobile mass adherent to TV papillary muscle and to septal leaflet of tricuspid valve could be vegetation or thrombus, but favors thrombi given poor RV function. ? 15. Severe pulmonary hypertension, estimated pulmonary arterial systolic pressure is 60 mmHg. ? 16. There is trace pulmonic regurgitation. ? 17. Dilated inferior vena cava with <50% collapse upon inspiration consistent with significantly elevated right atrial pressure, 15 mmHg. Code status. Full VTE prophylaxis. SCDs; Eliquis Nutrition. Heart healthy ? Patient seen and examined at bedside during my morning rounds ? Collaborated with patient's nurse at the bedside in detail and addressed all concerns ? Labs, electrolytes, radiology, investigations and test results reviewed ? Consult/Nursing/Ancilliary notes on the chart reviewed and appreciated ? Spoke with patient/family at the bedside and answered all the questions that they had Repeat labs in a.m. Electrolyte replacement as per protocol. Patient will be monitored very closely on the floor. Further recommendations as per the hospital course. 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 But his shortness of breath is going to typical for him as he is unable to hold his breath even while serving.? Patient denied any history of any heart disease any history of any congestive heart failure no history of any viral infections.? Denies any fever chills nausea vomiting diarrhea hematemesis hemoptysis no dizziness no lower extremity swelling.? But he did notice that his abd
[2023-10-19] VITALS: PULSE 96; O2SAT 98
[2023-10-19 00:42] VITALS: PULSE 90; RESP 17; O2SAT 97
[2023-10-19 02:00] VITALS: PULSE 91
[2023-10-19 02:21] VITALS: BP 82/61; PULSE 97; RESP 18; O2SAT 98
--- NOTE | 2023-10-19 02:39 | PC.NURSE ---
Report given to [facility] for transfer to [address] for further congestive heart failure care.
--- NOTE | 2023-10-19 03:45 | PC.NURSE ---
Called receiving Unit at [place] to alert of patient's departure from this facility.
--- NOTE | 2023-10-19 10:09 | PM.TDS ---
Transfer Discharge Sum: Prov Provider Date of admission: 10/16/23 19:35 Primary care physician: Chago Ngo MD Admitting clinician: Luis Guerrero MD Attending physician on admission: Luis Guerrero Consults: 10/16/23 Consult to Physician Routine Comment: Consulting Provider: Shaquille Stiles call center operator/MD group to consult: Go Reason for consultation: elevated trop, new onset heart failure Has provider been notified: Yes 10/17/23 12:19 Care Coordination Consult Routine Comment: Reason for Consult:: LifeVest Attending physician on discharge: Robin Haq Discharging clinician: Robin Haq Anticipated date of transfer: 10/19/23 Receiving physician/facility: Dr. Johnathon Burton at [facility] for higher level of care at [facility] heart failure center. DS: Admitting Diagnosis Discharge Date 10/19/23 Admitting Diagnosis Shortness of breath due to fluid overload DS: Discharge Diagnosis Discharge Diagnosis (1) Cardiomyopathy: Code(s): I42.9 - Cardiomyopathy, unspecified Status: Acute (2) NSTEMI (non-ST elevated myocardial infarction): Code(s): I21.4 - Non-ST elevation (NSTEMI) myocardial infarction Status: Acute (3) Intracardiac thrombus: Code(s): I51.3 - Intracardiac thrombosis, not elsewhere classified Status: Acute (4) New onset of congestive heart failure: Code(s): I50.9 - Heart failure, unspecified Status: Acute (5) Elevated troponin: Code(s): R79.89 - Other specified abnormal findings of blood chemistry Status: Acute (6) Hypomagnesemia: Code(s): E83.42 - Hypomagnesemia Status: Acute Transfer Discharge Sum: Med Medications Active and Home Medications: Home Medications No Home Medications 10/16/23 [History Confirmed 10/16/23] Current hospital medication list already submitted to the facility with patient transfer Transfer Discharge Sum: Hosp Hospital Course Hospital course: H&P: HPI History of Present Illness Date/Time: 10/16/23? 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 Patient states he has been traveling quite a bit recently to [place] for a corrective surgery for his right wrist but also has been under lot of stress from his business and work.? But his shortness of breath is going to typical for him as he is unable to hold his breath even while serving.? Patient denied any history of any heart disease any history of any congestive heart failure no history of any viral infections.? Denies any fever chills nausea vomiting diarrhea hematemesis hemoptysis no dizziness no lower extremity swelling.? But he did notice that his abdominal girth has increased and he felt there was some swelling around the abdominal wall few days ago.? No history of any tachycardia no history of any lower extremity edema no history of sleep apnea. Triage vitals show tachycardia, otherwise normal. Lab work reviewed. CBC shows hemoconcentration with HGB of 18.3, d-dimer elevated at 6.98, CMP grossly normal. Low magnesium. Troponin elevated at 0.333, BNP elevated at 5990. CXR shows likely CHF with mild pulmonary edema. CTA and abdomen pelvis pending. ntences.? No lower extremity edema present. 10/17/2023: Patient seen evaluated, nontoxic appearing.? Mild increased work of breathing with conversation however he is able to speak in full sentences.? No lower extremity edema present. 10/18/2023: Patient seen and examined at bedside.? Awaiting transfer to be [facility].? Will undergo further cardiac management and LifeVest fitting there. 10/19/2023: Patient got bed availability at PACU earlier this morning and was transferred in stable condition. Further management as per supervisor estimator and drafter at the [facility]. Decision regarding fitting with LifeVest versus AICD placement
== END 2023-10-19 03:44 | disposition short-term general hospital (02) | DRG 292 ==
LOC: ANHED 19:38 → ANHIMU 20:10
PROVIDERS: Internal Medicine; Physician Assistant; Specialist; Admitting Provider Internal Medicine; Emergency Provider Student in an Organized Health Care Education/Training Program; PCP Emergency Medicine; Visit Provider Family Medicine
DX: I50.1 Left ventricular failure, unspecified (principal); E87.1 Hypo-osmolality and hyponatremia; I42.0 Dilated cardiomyopathy; E83.42 Hypomagnesemia; I51.3 Intracardiac thrombosis, not elsewhere classified; D69.6 Thrombocytopenia, unspecified; K21.9 Gastro-esophageal reflux disease without esophagitis; Z20.822 Contact with and (suspected) exposure to COVID-19
CPT/HCPCS: 36415; 71046; 71275; 74177; 80048; 80053; 81001; 83690; 83735; 83880; 84145; 84443; 84484; 85025; 85055; 85380; 85610; 85652; 85730; 86140; 87637; 93005; 94003; 96365; 96375; 99285; A9270; C8929; C9113; J0780; J1940; J2060; J3475; Q9957; Q9967

== ENCOUNTER 2024-03-25 13:27 | Outpatient (CLI) | payer BC, SELFPAY ==
--- NOTE | 2024-03-25 | ECG_ITS ---
Test Date: 2024-03-25 14:09:31 Measurements Intervals [place] Rate: 52 P: 67 SC: 226 QRS: -28 QRSD: 114 T: 65 QT: 433 QTc: 403 Interpretive Statements SINUS BRADYCARDIA WITH FIRST DEGREE AV BLOCK LOW QRS VOLTAGE IN EXTREMITY LEADS [QRS DEFLECTION < 0.5 mV IN LIMB LEADS] ANTEROSEPTAL MYOCARDIAL INFARCTION , OF INDETERMINATE AGE [40+ ms Q WAVE IN V1-V4] ABNORMAL T, CONSIDER ISCHEMIA, ANTERIOR LEADS No previous ECG available for comparison Electronically Signed On 03-25-2024 15:41:11 CDT by nAil Gauthier M.D.
[2024-03-25 14:03] LABS: Basophils Absolute Auto 0.1 K/mm3 (0.0-0.1); Eosinophils Absolute Auto 0.1 K/mm3 (0-0.3); Eosinophils Percent Auto 2.2 % (0-4.4); Hematocrit 45.7 % (42.0-52.0); Hemoglobin 16.4 g/dL (14.0-18.0); Lymphocytes Absolute Auto 0.94 K/mm3 (0.9-3.2); Lymphocytes Percent Auto 23.1 % (18.3-44.2); Mean Corpuscular HGB Conc 35.9 g/dl (32-36); Mean Corpuscular Hemoglobin 35.3 pg (26-34); Mean Corpuscular Volume 98.3 fl (80-100); Mean Platelet Volume 9.8 fl (7.4-10.4); Monocytes Absolute Auto 0.5 K/mm3 (0.1-0.6); Monocytes Percent Auto 12.3 % (2.6-8.5); Neutrophils Absolute Auto 2.5 K/mm3 (1.3-6.7); Neutrophils Percent Auto 60.4 % (45.5-73.1); Platelet Count Result 161 k/mm3 (150-375); Red Blood Count 4.65 M/mm3 (4.6-6.20); Red Cell Distribution Width 10.9 % (11.5-14.5); White Blood Count 4.1 K/mm3 (4.5-10.0)
[2024-03-25 14:07] LABS: Add Urine Microscopic? NO; Appearance Urine Clear (Clear); Bilirubin Urine Negative (Negative); Blood Urine Negative (Negative); Color Urine Yellow (Yellow); Glucose Urine UA 1+ mg/dL (Negative); Ketones Urine Trace mg/dL (Negative); Leukocyte Esterase Ur Negative LEU/UL (Negative); Nitrate Urine Negative (Negative); Protein Urine Negative (Negative); Specific Grav Ur 1.006 (1.001-1.035); Urobilinogen Urine 0.2 mg/dL (<2.0)
[2024-03-25 14:20] LABS: INR 1.2
[2024-03-25 14:21] LABS: Partial Thromboplastin Time 28.9 Seconds (22.3-36.8)
[2024-03-25 15:17] LABS: Alanine Aminotransferase 45 U/L (6-50); Albumin Level 4.7 g/dL (3.5-5.1); Alkaline Phosphatase 54 U/L (38-126); Anion Gap 11 mmol/L (4-12); Aspartate Amino Transferase 37 U/L (17-59); Bilirubin,Total 0.9 mg/dL (0.2-1.3); Blood Urea Nitrogen 18 mg/dL (9-20); Calcium 9.6 mg/dL (8.4-10.2); Carbon Dioxide 29 mmol/L (22-30); Chloride 95 mmol/L (98-107); Cholesterol 226 mg/dL (0-200); Estimated Glomerular Filt Rate > 60; Glucose 82 mg/dL (65-110); HDL Direct 82 mg/dL; Magnesium 2.1 mg/dL (1.6-2.3); Phosphorus 3.5 mg/dL (2.5-4.5); Potassium 4.5 mmol/L (3.4-5.0); Sodium 135 mmol/L (137-145); Triglycerides 71 mg/dL (<150)
[2024-03-25 15:20] LABS: Iron 147 ug/dL (49-181)
[2024-03-25 15:28] LABS: LDL Cholesterol Direct 112 mg/dL
[2024-03-25 15:29] LABS: Percent Iron Saturation 47 % (20-50)
== END 2024-03-25 13:28 | disposition home or self-care (01) ==
LOC: ANHCARD 13:29 → ANHLAB 13:33
PROVIDERS: PCP Emergency Medicine; Visit Provider Emergency Medicine
DX: Z00.01 Encounter for general adult medical examination with abnormal findings (principal); R94.31 Abnormal electrocardiogram [ECG] [EKG]; I42.9 Cardiomyopathy, unspecified; R00.1 Bradycardia, unspecified; I44.0 Atrioventricular block, first degree; D69.6 Thrombocytopenia, unspecified; D75.1 Secondary polycythemia; E83.42 Hypomagnesemia; F41.1 Generalized anxiety disorder; I27.20 Pulmonary hypertension, unspecified; I51.3 Intracardiac thrombosis, not elsewhere classified; K76.9 Liver disease, unspecified; R53.83 Other fatigue; R63.4 Abnormal weight loss; R91.1 Solitary pulmonary nodule
CPT/HCPCS: 36415; 80061; 80069; 80076; 81003; 81256; 82607; 82728; 82746; 83540; 83550; 83735; 84443; 85025; 85610; 85730; 93005

== ENCOUNTER 2024-12-04 09:41 | Outpatient (CLI) | payer BC, SELFPAY ==
--- NOTE | ~2024-12-04 | MR_ITS ---
MRI of the right wrist Technique: Coronal T1 weighted and proton density fat sat images, and axial and sagittal proton-densi ty and proton-density fat-sat images were acquired. Clinical History: Osteoarthritis, pain Findings: Patient is status post proximal row carpectomy. Central articular disc of the TFCC is intac t, as are the foveal and styloid attachments at the distal ulna. There is mild degenerative change of the first carpal metacarpal joint. Flexor tendons in the carpal tunnel are unremarkable. Contents of Guyon's canal appear intact. Extens or tendons are intact. There is a 3 mm ganglion cyst just deep to the third extensor tendon compartme nt (axial images 19, sagittal image 17). No other soft tissue mass or fluid collection seen. Probable expected postoperative change dorsal to the capitate. IMPRESSION: Status post proximal row carpectomy. Mild degenerative change at the first carpometacarpal joint. 3 mm ganglion cyst just deep to the second extensor tendon compartment. Probable expected postoperative changes dorsal to the capitate. Reviewed, dictated and finalized at [facility].
--- NOTE | ~2024-12-04 | MR_ITS ---
MRI of the right hand CLINICAL HISTORY: Right middle finger MCP joint sprain TECHNIQUE: Coronal T1-weighted, STIR, and T2 fat-sat images, axial T1-weighted, STIR, and T2 fat-sat images, and sagittal T1-weighted, STIR, and T2 fat-sat images were acquired. FINDINGS: No acute fracture or dislocation seen. No acute bone marrow signal abnormality identified. There are focal areas of susceptibility artifact at the third and fourth metacarpal heads and at the proximal most aspects of the third and fourth proximal phalanges, likely postoperative in nature. The re are mild degenerative changes throughout the PIP joints and DIP joints of the fingers. There is mi ld to moderate degenerative change of the first CMC joint. Probable moderate degenerative change of t he third MCP joint with mild volar subluxation. No significant joint effusion identified. Collateral ligaments throughout the fingers appear to be intact. Flexor and extensor tendons and the hand appear to be intact. No abnormality of intrinsic musculature of the hand. No soft tissue mass or fluid collection identified. IMPRESSION: No acute abnormality identified. Probable postoperative changes about the third and fourth MCP joints, as noted above. Correlate with surgical history. Probable moderate degenerative change of the third MCP joint with mild volar subluxation of the joint . Additional degenerative changes in the fingers, as detailed above. Reviewed, dictated and finalized at location . IMPRESSION: No acute abnormality identified. Probable postoperative changes about the third and fourth MCP joints, as noted above. Correlate with surgical history. Probable moderate degenerative change of the third MCP joint with mild volar arrington bluxation of the joint. Additional degenerative changes in the fingers, as detailed above.
== END 2024-12-04 09:42 | disposition home or self-care (01) ==
DX: S63.652D Sprain of metacarpophalangeal joint of right middle finger, subsequent encounter (principal); X58.XXXD Exposure to other specified factors, subsequent encounter; M19.031 Primary osteoarthritis, right wrist
CPT/HCPCS: 73218; 73221

== ENCOUNTER 2025-04-19 00:39 | Day surgery (SDC) | payer BC, SELFPAY ==
[2025-03-31 13:58] VITALS: BMI 25.1
--- OUTSIDE RECORDS SUMMARY | 2025-04-19 00:42 | XMS_ITS | Data Portability ---
Author Organization [facility], bethmelissa Address [address] [place] [address] Care Team Providers Care Cytotechnologist Name Role Phone GERMANIA MCDONNELL Dragline Oiler MARISELA CANTOR Primary Care Provider [phone] Assessment Encounter Date Assessment Date Assessment LastModified by Organization Details LastModified Time 12/13/2024 12/13/2024 Impression: 8 months status post right hand middle and ring finger radial collateral ligament secondary repair. Status post right wrist proximal row carpectomy. We discussed with the patient the findings on today's telehealth consultation and MRI of the hand and wrist. MRI of the right hand reveals degenerative changes most notably at the middle finger MP joint. The repaired radial collateral ligaments to the middle finger and ring finger metacarpal phalangeal joint appear intact despite the clinical laxity . The more definitive treatment of this condition would be to perform metacarpal phalangeal joint arthrodesis of the middle and ring fingers to prevent additional instability, subluxation, and symptoms. However the patient wishes to avoid an MP joint fusion and we have agreed upon surgical intervention for reconstruction of the right middle and ring finger MP joints. He understands the risks and benefits of attempting additional soft tissue reconstruction and the possibility of symptom recurrence or advancement of degenerative changes at the MP joints. He is not a good candidate at this time for implant arthroplasty due to his age and high demand of the hand. He is very appreciative for the preoperative discussion and treatment to date. 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 The patient notes improvement in his wrist pain since last visit and we will continue to monitor his progress and after surgical reconstruction for the metacarpal phalangeal joints along with postoperative immobilization and subsequent therapy. If his pain progressives in nature at the wrist he may require ultrasound-guided steroid injections, or wrist arthrodesis at a later date. Again this is a procedure which we are attempting to avoid at this time. Not available 12/15/2024 21:42:00 12/24/2024 12/24/2024 Impression: Excellent early recovery 10 days after right middle and ring finger MP joint radial collateral ligament reconstructive surgery. We discussed the patient the findings on today's exam and available treatment options. We are pleased to see resolution of the ulna drift of the right middle and ring fingers from the previous deformity. The patient is at an appropriate stage of healing for suture removal which was successfully performed today. He was then placed into a short arm cast beyond the PIP joints. Patient should continue with elevation and activity limitation of the right upper extremity over the next several weeks. We will then plan for cast removal and splint application. Patient is appreciative of the care today and will return to clinic in 4 weeks for follow-up evaluation and treatment. Not available 12/26/2024 14:38:33 02/02/2025 02/02/2025 Patient is a 49 year old female who presents with order for fabrication of forerm based palmar crawford with individual finger loops to correct deviation for RUE. Patient underwent right middle and ring finger MP joint radial collateral ligament reconstructive surgery on 12/14/2024. Patient reported Pain/Observed pain behaviors: no pain reported at rest, mild (4/10) pain reported at with manual correction of deviation at MCP joints. Resting position of body segment upon arrival: 20* ulnar deviation at all MP joints Current orthoses/casting: cast removed prior to orthosis fabrication Edema/Skin Integrity: excessive skin peeling following cast removal, skin integrity intact Fabricated custom thermoplastic forearm based palmar crawford with individual finger loops to correct deviation. Orthosis fabricated with 06/02 ezeform 1% perf and secured in place with strapping. Position of body segment within fabricated orthosis: Wrist in slight extension, digits 2-5 in neutral deviation and ~10* off of full extension. Thumb free. Patient tolerated fabrication well with no reported discomfort and no observed areas of pressure caused by orthosis upon fabrication. Provided patient education for donning/doffing of orthosis, wear schedule, care instructions and monitoring for pressure areas/fit. Patient demonstrated understanding and provided accurate return demonstration for donning/doffing orthosis. Patient to contact OT should any concerns related to orthosis arise. OT recommended for up to 3 sessions of orthosis modification (47430) for management of any needs subsequent of fabrication with the following goals established: 1. Patient will adhere to recommended orthosis wear schedule without development of pressure areas/compromised skin integrity. 2. Patient will maintain digits in neutral deviation and extension provided compliance with orthosis wear. [email or web address] Not available 02/02/2025 13:04:14 02/02/2025 02/02/2025 Impression: Excellent healing 7 weeks after right middle and ring finger MP joint radial collateral ligament reconstructive surgery. We discussed the patient the findings on today's exam and available treatment options. We are pleased to see significant improvement in clinical alignment of the right middle and ring fingers from the previous ulnar drift deformity. The preoperative pain is also diminished. The short arm cast has been removed and a custom made radial gutter OT splint was created with focus on radial deviation of the digits. The splint should be worn at all times for the next 4 weeks except for bathing. He may begin occupational therapy at 12 weeks for range of motion activities only and strengthening of the extensors and intrinsic muscles. The patient is very pleased with his early results and will return to clinic in 6-8 weeks for follow up evaluation and treatment. Not available 02/09/2025 20:57:47 2025 2025 Impression: Excellent healing 4 months after right middle and ring finger MP joint radial collateral ligament reconstructive surgery. We discussed the patient the findings on today's exam and available treatment options. We are very pleased to see significant improvement in clinical alignment of the right middle and ring fingers from the previous ulnar drift deformity. The preoperative pain is also diminished. The patient may remove the splint 3 times a day and practice gentle finger range of motion and light activities but otherwise wear the splint during the day and night for sleep. The patient is very pleased with his early results and will return to clinic in 8 weeks for follow up evaluation and treatment. This encounter was performed via audio-video synchronous [employer] telemedicine conference, time spent is 20 mintes [email or web address] Not available 04/10/2025 20:08:41 Plan of Treatment Reminders Order Date Submit Date Provider Last Modified By Organization Details Last Modified Time Details Appointments None recorded. Lab None recorded. 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 DOS: 04/06/24 Right hand middle and ring finger MP joint radial collateral ligament repair. DOS: 12/14/24 middle and ring finger MP joint radial collateral ligament repair. revision reconstruct ion Please work on finger range of motion and gentle, progressive strengtheni ng. 2024 025 [email or web address] [facility], [address] [place], [address], 07:17:17 Procedures None recorded. Surgeries None recorded. Imaging XR, hand 2024 025 ago38 [facility], [address] [place] [address], [id number], 08:51:44 Medication Orders None recorded. Patient TargetsNo targets recorded. Patient InstructionsNo instructions recorded. Reason for Referral MAY BEGIN 03/08/25. DOS: 05/18 Right hand middle and ring finger MP joint radial collateral ligament repair. DOS: 12/14/24 middle and ring finger MP joint radial collateral ligament repair. revision reconstruction Please work on finger range of motion and gentle, progressive strengthening. Referring Physician: Carlos Cid, Orthopedic Surgery, Encounter Date: 02/02/2025 Results Created Date Observation Date Name Description Value Unit Range Abnormal Flag Note LastModifiedBy Organization Detail LastModifiedTime 12/07/1912/04/2024 MRI, wrist , w/o contr ast No observ ation record ed. [email or web address] [facility] [address], [place], [address], 12/06/2024 10:17:36 12/08/1912/04/2024 MRI, wrist , w/o contr ast No observ ation [email or web address] [address], [place], [address], 12/13/2024 17:44:48 12/08/1912/04/2024 MRI, wrist , w/o contr ast No observ ation [facility] ed[email or web address] [address], [place], [address], 12/13/2024 09:38:10 01/11/20 XR, hand No observ ation record ed. [email or web address] Not Available 12/24 14:46:12 02/02/20 XR, hand No observ ation record ed. KRISTIN Orourke_[facility] [address] [facility], [place], [address], 02/02/2025 09:57:33 Result Notes None recorded. Problems Name Problem SNOMED Code Status Onset Date Resolution Date Notes Provider Name and Address Organization Details Recorded Time Pain of right hand 8502504450849 09 Active 2023 Mehreen valentine PA-C [address] [facility],[place] [address], [place], [address], [facility] 4 11:54:04 Complete tear, finger, metacarpoph alangeal joint, radial collateral ligament 473745225 Active 2023 Carlos Cid MD [address] [facility] [address], [place], [address], [facility] 5 16:07:49 Postoperati ve pain 420424484 Active 2023 Mehreen valentine PA-C [address] [facility] [address], [place], [address], [facility] 5 18:26:57 Osteoarthri tis of wrist 822195795 Active 2023 Mehreen valentine PA-C [address] [facility] [address], [place], [address], [facility] 4 16:17:33 Problem Notes None recorded. Procedures Surgical History Date Name Laterality Status Provider Name and Address Organization Details Recorded Time 5 Orthosis Management completed Jose Saunders, OT [address] [facility],[address], [place], [address], [facility] 02/02/2025 13:00:43 5 Cast/Splint Application Upper Extremity completed Mehreen Duffy PA-C [address] [facility],[address], [place], [address], [facility] 12/24/2024 11:45:12 4 Orthosis Management completed Shivani Taylor, OT [address] [facility] [address], [place], [address], [facility] 05/06/2024 09:00:09 4 Cast/Splint Application Upper Extremity completed Mehreen Duffy PA-C [address] [facility],[address], [place], [address], [facility] 04/16/2024 11:23:19 4 Orthosis Management completed Shivani Taylor, OT [address] [facility] [address], [place], [address], [facility] 11/14/2023 14:51:00 4 Pin or Wire Removal completed Carlos Cid MD [address] [facility] [address], [place], [address], [facility] 10/18/2023 10:30:43 Hand Surgery completed [facility] 09/19/2023 09:55:45 repair of rotator cuff by suture completed [facility] 09/19/2023 09:56:19 Imaging Results None recorded. Procedure Notes None recorded. Medical Equipment None Reported. Allergies Allergen ID Allergen Name Allergen Category Reaction Reaction Severity Criticality Documentation Date Start Date Code Code System Note Provider Name and Address Organization Details Recorded Time 885332 cat dander environme nt other Not available Not available 10/27/2024 Beatriz Santillan [place], [place] - [facility] 5 11:32:47 Medications Name Sig Start Date Stop Date Status Note LastModified by Organization Details LastModified Time furosemide 40 mg tablet TAKE 1 TABLET BY MOUTH DAILY NEEDED FOR WEIGHT GAIN OF 2-3POUNDS IN A DAY OR 5 POUNDS IN A WEEK active Not Available Not Available No t Available hydrocodone 5 mg-acetamin ophen 325 mg tablet TAKE 1 TABLET BY MOUTH EVERY 6 HOURS NEEDED FOR PAIN active Not Available Not Available No t Available promethazin e 12.5 mg tablet TAKE 1 TABLET BY MOUTH EVERY 4 HOURS NEEDED FOR NAUSEA AND VOMITING 10/14 completed Not Available Not Available Not Available metoprolol succinate ER 200 mg tablet,exte nded release 24 hr TAKE 1 TABLET BY MOUTH EVERY DAY active Not Available Not Available No t Available ondansetron HCl 4 mg tablet TAKE 1 TABLET BY MOUTH EVERY 8 HOURS NEEDED FOR NAUSEA AND VOMITING active Not Available Not Available No t Available metoprolol succinate ER 100 mg tablet,exte nded release 24 hr TAKE 2 TABLETS BY MOUTH ONCE DAILY 03/19 completed Not Available Not Available Not Available metronidazo le 500 mg tablet TAKE 1 TABLET BY MOUTH TWICE A DAY FOR 7 DAYS 10/27 completed Not Available Not Available Not Available spironolact one 25 mg tablet TAKE 1 TABLET (25 MG TOTAL) BY MOUTH DAILY. active Not Available Not Available No t Available oxycodone-a cetaminophe n 5 mg-325 mg tablet TAKE 1 TABLET BY MOUTH EVERY 6 HOURS WITH MEALS FOR 3 DAYS FOR POST OPERATIVE PAIN active Not Available Not Available No t Available famotidine 20 mg tablet TAKE 1 TABLET BY MOUTH TWICE DAILY 02/19 completed Not Available Not Available Not Available [facility] Furosemide 40 mg tablet Take 1 tablet every day by oral route. 11/11 completed Not Available Not Available Not Available cephalexin 500 mg capsule TAKE 1 CAPSULE BY MOUTH TWICE DAILY FOR 5 DAYS (BEGIN MEDICATIO N THE DAY AFTER SURGERY) 09/18 completed Not Available Not Available Not Available metoprolol succinate ER 25 mg tablet,exte nded release 24 hr Take 1 tablet every day by oral route. 02/19 completed Not Available Not Available Not Available methylpredn isolone 4 mg tablets in a dose pack TAKE BY MOUTH DIRECTED ON INSIDE OF PACKAGE 09/18 completed Not Available Not Available Not Available ondansetron 4 mg disintegrat ing tablet TAKE 1 TABLET BY MOUTH EVERY 8 HOURS NEEDED FOR NAUSEA AND VOMITING 10/27 completed Not Available Not Available Not Available Eliquis 5 mg tablet TAKE 1 TABLET BY MOUTH TWICE A DAY 05/05 completed Not Available Not Available Not Available Farxiga 10 mg tablet 11/11 completed Not Available Not Available Not Available Jardiance 10 mg tablet TAKE 1 TABLET BY MOUTH EVERY DAY active Not Available Not Available No t Available dapaglifloz in propaned 10 mg-metformi n ER 500 mg tablet, ext rel 24hr Take 1 tablet every day by oral route. 02/19 completed Not Available Not Available Not Available sacubitril 49 mg-valsarta n 51 mg tablet TAKE 1 TABLET BY MOUTH TWICE A DAY active Not Available Not Available No t Available Entresto 24 mg-26 mg tablet TAKE 1 TABLET BY MOUTH TWICE A DAY 05/05 completed Not Available Not Available Not Available Vitals Date Recorded Body height Body mass index (BMI) Body weight Provider Name and Address Organization Details Last Updated DateTime 12/24/2024 182.88 cm 23.7 kg/m2 74033.66 g [facility] 12/24/2024 10:02:37 Date Recorded Body height Provider Name an d Address Organization Details Last Updated DateTime 02/02/2025 182.88 cm [facility] 09:58:28 Social History Question Answer Notes LastModified by Organizat ion Details LastModified Time Tobacco Smoking Status Never Smoker [employer] [facility] 09/19/2023 09:55:42 Do You Have An Advance Directive? No Information not available 09/19/2023 Are You Blind Or Do You Have Difficulty Seeing? No Information not available 09/19/2023 Is Blood Transfusion Acceptable In An Emergency? Yes Information not available 09/19/2023 What Is Your Level Of Caffeine Consumption? Moderate Information not available 09/19/2023 Are You Deaf Or Do You Have Serious Difficulty Hearing? No Information not available 09/19/2023 What Type Of Diet Are You Following? REGULAR Information not available 09/19/2023 Which Of Your Hands Is Dominant? Right Information not available 09/19/2023 What Was The Date Of Your Most Recent Tobacco Screening? 02/02/2025 [email or web address] Information not available 02/02/2025 Do You Have Any Pets? No Information not available 09/19/2023 What Is Your Relationship Status? Single Information not available 09/19/2023 Has Tobacco Cessation Counseling Been Provided? Yes [email or web address] Information not available 10/27/2024 On What Date Was Tobacco Cessation Counseling Provided? 02/02/2025 [email or web address] Information not available 02/02/2025 How Many Days In The Past Year Have You Consumed 5 Or More Drinks? 0 Information no t available 09/19/2023 Sex: Unknown Functional Status Question Answer Note LastModified by Organizat ion Details LastModified Time Do you use any illicit or recreational drugs? No Information not available 09/19/2023 Do you or have you ever used any other forms of tobacco or nicotine? No Information not available 09/19/2023 What is your level of alcohol consumption? Moderate Information not available 09/19/2023 Are you currently employed? Yes Information not available 09/19/2023 Are you able to care for yourself independently? Yes Information not available 09/19/2023 What is your occupation? [email or web address] Information not available 09/19/2023 What is your exercise level? Moderate Information not available 09/19/2023 Mental Status Question Answer Note LastModified by Organization D etails LastModified Time Do you feel stressed (tense, restless, nervous, or anxious, or unable to sleep at night)? [id number] Information not available 09/19/2023 Family History Relationship Description Onset Age of this Age Resolved Age Notes LastModified by Organization Details LastModified Time Father Heart disease Not available 02/24 15:40:17 Medical History Condition Response Diabetes (Insulin Dependent) N High Blood Pressure (Hypertension) N Eye Problems (Glaucoma, Retinopathy, Mac ular Degeneration) N AFib (Atrial Fibrillation) Y Anxiety N Edema (Swelling) N Back/Neck Pain N Anesthetic Complication N Substance Abuse (Alcohol, Drug) N Depression N Kidney Disease/Stones N Joint Pain N Gastrointestinal Disease (IBS, Gastritis , Ulcer, Acid Reflux) N High Cholesterol (Hyperlipidemia) N Anemia N Blood Clot (Deep Vein Thrombosis) N Neuropathy (Numbness, Pain, Tingling) N No changes to past medical history since last recorded N Pulmonary Embolism (Blood Clot in the Sheri ng) N CHF (Congestive Heart Failure) N Headaches/Migraines N Bladder Problems N Diabetes (Non-Insulin Dependent) N Hearing Loss N Claustrophobic N Osteopenia/Osteoporosis N Arthritis Osteoarthritis N No known past medical history recorded b y patient N Heart Attack (Myocardial Infarction) N Heart Disease/Valve Disease N Cancer N Heart Rhythm Problem (Palpitations) N AIDS N Spine Disease (Herniated Disc, Scoliosis , Stenosis) N Asthma N COPD (Chronic Obstructive Pulmonary Dise ase) N Stroke/TIA N Prior Blood Transfusion N Bleeding Problems N Arthritis Rheumatoid N Other Disease(s): N MRSA (Antimicrobial Resistance) N CAD (Coronary Artery Disease) N Past Encounters Encounter ID Performer Location Encounter Start Date Encounter Closed Date Diagnosis/Indication Diagnosis SNOMED-CT Code Diagnosis ICD10 Code Diagnosis IMO Codes Diagnosis Note [id number] MD JASON Quiñonez_LAMAR [address] [place] [address] 09/19/2023 09:46:41 09/25/2023 10:16:15 Pain of right hand 6383564679 54237 M79.641 Complete t ear, finger, metacarpophalangeal joint, radial collateral ligament 850841886 S63.652D [id number] MD CELINA Quiñonez [address] [place] [address] 10/15/2023 09:14:36 10/16/2023 06:57:38 Osteoarthritis of wrist 074710006 M19.468 [id number] MD CELINA Quiñonez [address] [place] [address] 11/12/2023 12:16:11 11/13/2023 07:24:17 Osteoarthritis of wrist 073803980 M19.323 [id number] Shivani Stoddardberry, OT [facility] [address] [place] [address] 11/13/2023 15:53:56 11/13/2023 15:54:16 Complete tear, finger, metacarpophalangeal joint, radial collateral ligament 732054649 S63.652D Muscle weakness 22692788 M62.81 Muscle atrophy 18162717 M62.50 [id number] Carlos Cid MD [facility] [address] [facility] [address] [place] [address] 12/29/2023 08:38:38 01/12/2024 13:51:44 Complete tear, finger, metacarpophalangeal joint, radial collateral ligament 435549716 S63.652D Osteoarthr itis of wrist 253191573 M19.379 [id number] MD JASON Quiñonez_[facility] [address] [place] [address] 02/20/2024 14:14:55 02/20/2024 16:26:22 Complete tear, finger, metacarpophalangeal joint, radial collateral ligament 152767198 S63.652D [id number] MD JASON Quiñonez_[facility] [address] [place] [address] 03/19/2024 15:36:27 03/22/2024 07:10:24 Osteoarthritis of wrist 394881744 M19.688 [id number] MD JASON Quiñonez_[facility] [address], [place] [address] 04/16/2024 08:43:11 04/19/2024 06:56:20 Complete tear, finger, metacarpophalangeal joint, radial collateral ligament 132076363 S63.652D [id number] MD JASON Quiñonez_[facility] [address], [place] [address] 05/05/2024 08:51:17 05/06/2024 07:03:09 Complete tear, finger, metacarpophalangeal joint, radial collateral ligament 457494413 S63.652D [id number] Shivani Stanton Brandon, OT [facility] [address] [place] [address] 05/05/2024 10:09:06 05/05/2024 10:17:41 Complete tear, finger, metacarpophalangeal joint, radial collateral ligament 996050810 S63.652D Postoperative pain 03217 9007 G89.18 [id number] Carlos Cid MD [facility] [address],[place] [address] 06/25/2024 10:50:41 06/28/2024 07:20:01 Complete tear, finger, metacarpophalangeal joint, radial collateral ligament 511846477 S63.652D [id number] Carlos Cid MD [facility] [address] 07/26/2024 13:37:37 07/26/2024 14:42:06 Complete tear, finger, metacarpophalangeal joint, radial collateral ligament 393811465 S63.652D [id number] MD BETH Quiñ[facility]zY_[facility] [address],[place] [address] 10/01/2024 11:10:03 10/04/2024 06:48:03 Complete tear, finger, metacarpophalangeal joint, radial collateral ligament 197723791 S63.652D Osteoarthr itis of wrist 555923328 M19.158 [id number] MD JASON Quiñonez_[facility] [address] [place] [address] 10/27/2024 11:28:13 10/28/2024 07:07:28 Complete tear, finger, metacarpophalangeal joint, radial collateral ligament 892011753 S63.652D [id number] MD JASON Quiñ[facility]z_[facility] [address] [place] [address] 12/13/2024 17:46:20 12/14/2024 07:48:35 Complete tear, finger, metacarpophalangeal joint, radial collateral ligament 203383351 S63.652D [id number] Carlos Cid MD [facility] [address] ,[place] [address] 12/24/2024 09:55:37 12/27/2024 06:53:32 Complete tear, finger, metacarpophalangeal joint, radial collateral ligament 367721526 S63.652D [id number] Carlos Cid MD [facility] [address] ,[place] [address] 02/02/2025 09:57:31 02/03/2025 06:57:37 Complete tear, finger, metacarpophalangeal joint, radial collateral ligament 014451866 S63.652D [id number] Jose Saunders OT [facility] [address] [address] 02/02/2025 12:35:03 02/10/2025 04:58:47 Stiffness of joint of right hand 5318054092 29981 M25.641 [id number] Carlos Cid MD [facility] [address] ,[place] [address] 2025 16:27:09 2025 22:23:43 Complete tear, finger, metacarpophalangeal joint, radial collateral ligament 520855085 S63.652D Health Concerns Section Related Observation LastModified by Organization Detai ls LastModified Time None Recorded Concern Status LastModified by Organization Details LastModified Time None Recorded Advance Directives Directive N: Payers Insurance Date Sequence Insurance Name Policy Number Policy Henning Covered Member ID Henning Member ID Guarantor Name 04/04/2025 1 [employer] [id number] Alfonso Brooks [id number] Alfonso Brooks Notes Date Note Type Note Provider Name and Address Organization Details Recorded Time 12/13/2024 text/html DOS: 04/06/24DOS: 10/02/23 right [id number] male presents for pre operative telehealth consultation after MRI of the right hand and wrist. He notes improvement in finger flexion, but extension remains limited due to a weakness. He notes worsening ulnar deviation of the middle, ring and small finger with minimal ability to control fine motor of the digits. The patient feels tightness along the dorsum of the right hand. He notes improvement in the right wrist pain. 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 He states there may be a muscular component. Carlos Cid MD [address] [facility] [address], [place], [address], [facility] 12/15/2024 21:42:03 12/24/2024 text/html DOS: 12/14/[id number] male returns to clinic 10 days after right hand middle and ring finger radial collateral ligament reconstruction. He has been immobilized in a postoperative bandage and compliant with elevation and activity limitation. He denies any significant postoperative pain and denies any pain at this time. He notes correction in the appearance of the right middle and ring finger ulnar drift deformity. Carlos Cid MD [address] [facility] [address], [place], [address], [facility] 12/26/2024 14:38:36 02/02/2025 text/html DOS: 12/14/[id number] male returns to clinic 7 weeks after right hand middle and ring finger radial collateral ligament reconstruction. He has been immobilized in a cast and compliant with elevation and activity limitation. He denies any significant postoperative pain and denies any pain at this time. He notes correction in the appearance and reduction of the preoperative pain of the right middle and ring finger ulnar drift deformity. Carlos Cid MD [address] [facility] [address], [place], [address], [facility] 02/09/2025 20:57:50 02/02/2025 text/html Patient seen in clinic alongside Dr. Cid and team. Jose Saunders, OT [address] [facility] [address], [place], [address], [facility] 02/02/2025 13:04:55 2025 text/html DOS: 12/14/[id number] male returns to clinic 4 months after right hand middle and ring finger radial collateral ligament reconstruction. He has been immobilized in a splint and compliant with elevation and activity limitation. He denies any significant postoperative pain and denies any pain at this time. He notes correction in the appearance and reduction of the preoperative pain of the right middle and ring finger ulnar drift deformity. Carlos Cid MD [address] [facility] [address], [place], [address], [facility] 04/10/2025 20:08:57
--- OUTSIDE RECORDS SUMMARY | 2025-04-19 00:43 | XMS_ITS | Clinical Summary ---
Author Organization [facility] Address [address] [place] [address] Care Team Providers Care Mock Up Builder Name Role Phone None, Physician Primary Care Provider Unavailabl e Source Comments [facility],non-owned Affiliates and Associated Physician Practices is amultiple site organization consisting of ambulatory clinics and hospital sitesin [place], [place], [place]. This disclosure is being madepursuant to the Care Everywhere program and may not contain all information available regarding this patient. Last updated 18.[facility] Allergies No known active allergies Medications * Be aware that medications may not be up to date on this document. Alwaysverify current medications with the patient. spironolactone (Aldactone) 25 MG tablet Take 1 tablet every day by oral route. 11/17/2023 Active sacubitril-vals flori (Entresto) 24-26 MG tablet Take 1 tablet twice a day by oral route. 11/17/2023 Active metoprolol succinate XL 24hr (Toprol XL) 100 MG tablet Take 2 (two) tablets by mouth once daily 11/26/2023 Active furosemide (Lasix) 40 MG tablet Take 1 tablet every day by oral route. 11/17/2023 Active famotidine (Pepcid) 20 MG tablet Take 1 tablet twice a day by oral route. 11/17/2023 Active empagliflozin (Jardiance) 10 MG tablet Take 1 (one) tablet by mouth once daily 11/17/2023 Active Farxiga 10 MG tablet 10/24/2023 Active dapagliflozin-m etFORMIN ER 24hr (Xigduo XR) 10-500 MG tablet Take 1 tablet every day by oral route. Active apixaban (Eliquis) 5 MG tablet Take 1 tablet twice a day by oral route. 11/17/2023 Active Active Problems Problem Noted Date Diagnosed Date Closed fracture of nasal bones 04/08/2023 Deviated nasal septum 11/29/2022 Nasal turbinate hypertrophy 11/29/2022 Nasal deformity, acquired 11/29/2022 Social History Tobacco Use Types Packs/Day Years Used Date Smoking Tobacco: Never Smokeless Tobacco: Never Tobacco Cessation:Counseling Given: Not Answered Alcohol Use Standard Drinks/Week Comments Yes 7 (1 standard drink = 0.6 oz pur e alcohol) Sex and Gender Information Value Date Recorded Sex Assigned at Not on file Legal Sex Male 9:43 AM CDT Gender Identity Not on file Sexual Orientation Not on file Plan of Treatment Health Maintenance Due Date Last Done Comments COLOGUARD (AGES 45-75) - COL ON CA SCREENING 1975 COLON MONITORING 1975 COLONOSCOPY - COLON CA SCREENING 1975 CT COLONOGRAPHY - COLON CA SCREENING 1975 Colorectal Cancer Screening 1975 FIT - COLON CA SCREENING 1975 FLEX SIG - COLON CA SCREENING 1975 LIPID TESTING 1975 HIV SCREENING 1990 HEPATITIS C SCREENING 04/01/1993 DTAP/TDAP/TD VACCINES (1 - Tdap) 1994 HEPATITIS B VACCINE (1 of 3 - 19+ 3-dose series) 1994 DEPRESSION SCREENING 05/26/2024 COVID-19 VACCINE (1 - 2024-2 6 season) 2025 INFLUENZA VACCINE (#1) 2025 PNEUMOCOCCAL VACCINE 50+ (1 of 1 - PCV) 2025 ZOSTER VACCINE (1 of 2) 2025 HIB VACCINE Aged Out No longer eligi ble based on patient's age to complete this topic HPV VACCINE Aged Out No longer eligi ble based on patient's age to complete this topic MENINGOCOCCAL (Group B) VACC INE SHARED DECISION-MAKING Aged Out No longer eligibl e based on patient's age to complete this topic MENINGOCOCCAL GROUPS A/C/Y/W VACCINE Aged Out No longer eligible b ased on patient's age to complete this topic Insurance ANTHEM Care Teams Mock Up Builder Relationship Specialty Start Date End Date None, Physician [address] [place] [address] PCP - General 11/29/22
--- OUTSIDE RECORDS SUMMARY | 2025-04-19 00:43 | XMS_ITS | Encounter Summary ---
Author Organization [facility] Address [address] [facility] [address] [place] [address] Phone Care Team Providers Care Legal Activity Adjudicator Name Role Phone Chago Ngo MD Primary Care Provider [phone] Rubén Perry MD Unavailable Beverly Lenz RN Unavailable [phone] Lalo Garnica MD Unavailable Raven Tavera RN Unavailable [phone] Xochilt Maciel RN Unavailable Yazan Sorto Unavailable Unavailable Sabrina Manley NP Unavailable Encounter Details Date Type Department Care Team (Late st Contact Info) Description 03/01/2025 Results Follow-Up [facility] Medicine Surgery [address] [place] [address] Abad Holley MD [address] [facility] [place] [id number] XR Abdomen 1 View AP Social History Tobacco Use Types Packs/Day Years Used Date Smoking Tobacco: Never Passive Smoke Exposure: Never Smokeless Tobacco: Never Alcohol Use Standard Drinks/Week Comments Yes 6 (1 standard drink = 0.6 oz pur e alcohol) [facility] Utilities Answer Date Recorded In the past 12 months has th e electric, gas, oil, or water [employer] threatened to shut off services in your home? No 11/07/2023 Social Connection and Isolation Panel Answer Date Recorded In a typical week, how many times do you talk on the phone with family, friends, or neighbors? More than three times a week 11/07/2023 How often do you get togethe r with friends or relatives? More than three times a week 11/07/2023 How often do you attend chur ch or rastafari services? More than 4 times per year 11/07/2023 Do you belong to any clubs o r organizations such as methodist groups, unions, fraternal or athletic groups, or school groups? No 11/07/2023 How often do you attend meet ings of the clubs or organizations you belong to? Never 11/07/2023 Are you , , di vorced, , never , or living with a partner? Never 11/07/2023 Overall Financial Resource Strain (CARDIA) Answe r Date Recorded How hard is it for you to pa y for the very basics like food, housing, medical care, and heating? Not hard at all 11/07/2023 PHQ-2 Answer Date Recorded PHQ-2 Total Score (If total score is 3 or more points, staff should administer the PHQ-9) 2 12/10/2023 Hunger Vital Sign Answer Date Recorded Within the past 12 months, y ou worried that your food would run out before you got the money to buy more. Never true 11/07/19 24 Within the past 12 months, t he food you bought just didn't last and you didn't have money to get more. Never true 11/07/2023 PRAPARE - Transportation Answer Date Re corded In the past 12 months, has l ack of transportation kept you from medical appointments or from getting medications? No 10/24 In the past 12 months, has l ack of transportation kept you from meetings, work, or from getting things needed for daily living? No 11/07/2023 Housing Stability Vital Sign Answer Kyle e Recorded In the last 12 months, was t here a time when you were not able to pay the mortgage or rent on time? No 11/07/2023 In the past 12 months, how m any times have you moved where you were living? 1 11/07/2023 At any time in the past 12 m [facility], were you homeless or living in a jail (including now)? No 11/07/2023 AUDIT-C Answer Date Recorded Q1: How often do you have a drink containing alc ohol? 2-3 times a week 02/11/2025 Q2: How many drinks containi ng alcohol do you have on a typical day when you are drinking? 3 or 4 02/11/2025 Q3: How often do you have si x or more drinks on one occasion? Never 02/11/2025 Personal Safety Answer Date Recorded Have you ever been in or are you currently in a harmful physical or emotional relationship or is someone making you feel afraid or unsafe? 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 Gender Identity Not on file Sexual Orientation Not on file documented as of this encounter Miscellaneous Notes * Result Encounter Note - Mira Goss RMA - 03/01/2025 10:24 AM CDT Called pt No answer left message with call back number if needed * Result Encounter Note - Abad Holley MD - 03/01/2025 8:41 AM CDT Kub looks good, s/p eswl documented in this encounter Plan of Treatment Not on file documented as of this encounter Visit Diagnoses Not on filedocumented in this encounter Care Teams Legal Activity Adjudicator Relationship Specialty Start Date End Date Chago Ngo MD [address] [address] PCP - General Family Medicine 11/18/22 Rub[place] [address] [place] [address] Surgeon Orthopedic Surgery 03/26/23 Beverly Lenz, RN [address] [facility] [address] [place] [address] SHOP Outpatient Disassembler 10/27/23 Lalo Garnica MD [address] [facility] [address] [place] [address] Shipping Point Inspector Transplant 10/19/23 Raven Tavera, AKOSUA [address] [facility] [address] [place], [place] [id number] Heart Failure Coordinator [employer]ct Managers 10/19/23 Xochilt Maciel, AKOSUA Ict Managers 11/25/23 Yazan Sorto Primary Lodge Sales Associate 02/10/25 Sabrina Manley NP [address] [place] [address] Nurse Practitioner Nurse Practitioner 02/11/25 documented as of this encounter
--- OUTSIDE RECORDS SUMMARY | 2025-04-19 00:43 | XMS_ITS | Clinical Summary ---
Author Organization [facility] Address [address] [place] [address] Phone Care Team Providers Care Mat Linker Name Role Phone Unavailable Primary Care Provider Unavailabl e Allergies No known active allergies Medications No known medications Social History Tobacco Use Types Packs/Day Years Used Date Smoking Tobacco: Never Alcohol Use Standard Drinks/Week Comments Yes 0 (1 standard drink = 0.6 oz pur e alcohol) 3x week Feeling Safe Answer Date Recorded Are you in a relationship wi th someone who hurts you emotionally and/or physically? Unable to obtain 04/07/2023 Food Insecurity Answer Date Recorded Social/Environmental Concerns No concerns Transportation Needs Answer Date Record ed Social/Environmental Concerns No concerns Housing Stability Answer Date Recorded Social/Environmental Concerns No concerns Utility Needs Answer Date Recorded Social/Environmental Concerns No concerns Sex and Gender Information Value Date Recorded Sex Assigned at Not on file Legal Sex Male 8:31 AM CDT Gender Identity Not on file Sexual Orientation Not on file Last Filed Vital Signs Vital Sign Reading Time Taken Comments Blood Pressure 97/58 04/07/2023 2:43 PM LIMEROCK TOWER LOADER Pulse 86 04/07/2023 2:43 PM LIMEROCK TOWER LOADER Temperature 36.9 C (98.4 F) 04/07/2023 2:43 PM LIMEROCK TOWER LOADER Respiratory Rate 20 04/07/2023 2:43 PM LIMEROCK TOWER LOADER Oxygen Saturation 95% 04/07/2023 2:43 PM LIMEROCK TOWER LOADER Inhaled Oxygen Concentration - - Weight 82.9 kg (182 lb 12.8 oz) 04/07/2023 5:59 AM LIMEROCK TOWER LOADER Height 182.9 cm (6') 04/07/2023 5:59 AM LIMEROCK TOWER LOADER Body Mass Index 24.79 04/07/2023 5:59 AM LIMEROCK TOWER LOADER Plan of Treatment Health Maintenance Due Date Last Done Comments DTAP/TDAP/TD VACCINES (1 - Tdap) 1994 HEPATITIS B VACCINES (1 of 3 - 19+ 3-dose series) 03/26 COLORECTAL SCREENING 2020 Colorectal Cancer Screening 2020 FIT-DNA Q 3 years 2020 FIT/FOBT Q 1 year 2020 Flex Sig/CT Colonography Q 5 years 2020 INFLUENZA VACCINE (#1) 2024 ZOSTER VACCINE (1 of 2) 2025 Medical Devices Implanted Type Area Roustabout Supervisor Device Identifier Shelf Expiration Date Model / Serial / Lot Disc Replace W/ [id number] Hemostatic Surgicel 2x3in 1952 Old - [id number] Implanted:Qty : 1 on 04/07/2023 by Johnathon Lam MD at [facility] Hemostatic N/A: Nose [employer] [id number] 09/22/[birth year]261952 / / [id number] Hemostatic Surgiflo 8ml W/ Thrombin 2994 - [id number] Implanted:Qty : 1 on 04/07/2023 by Johnathon Lam MD at [facility] Hemostatic N/A: Nose [employer] 07/23/2024 [id number] / / [id number] Insurance BLUE ACCESS CHOICE Advance Directives For more information, please contact: [phone] * Full Code (Latest Code Status on File) Date Activated Date Inactivated Comments 04/07/2023 12:32 PM 04/07/2023 5:04 PM
--- OUTSIDE RECORDS SUMMARY | 2025-04-19 00:43 | XMS_ITS | Clinical Summary ---
Author Organization [facility] Address [facility] [place] [address] Care Team Providers Care Medical Receptionist Assistant Name Role Phone Chago Ngo MD Primary Care Provider [phone] Rubén Perry MD Unavailable Beverly Lenz RN Unavailable [phone] Germania Mcdonnell MD Unavailable Raven Tavera RN Unavailable [phone] Xochilt Maciel RN Unavailable Yazan Sorto Unavailable Unavailable Sabrina Manley NP Unavailable Allergies No known active allergies Medications sacubitriL-vals flori (ENTRESTO) 49-51 mg tabletIndicatio ns:chronic heart failure Take 1 tablet by mouth 2 (two) times a day 180 tablet 3 4 Active empagliflozin (Jardiance) 10 mg tabletIndicatio ns:Heart Failure Take 1 tablet (10 mg total) by mouth daily 90 tablet 3 4 Active metoprolol XL (TOPROL-XL) 200 mg extended release tablet TAKE 1 TABLET BY MOUTH EVERY DAY 90 tablet 1 5 Active HYDROcodone-james taminophen (NORCO) 5-325 mg per tabletIndicatio ns:Pain Take 1 tablet by mouth every 6 (six) hours as needed for pain 8 tablet 5 Active Additional Information Patient not taking.Reported on 02/24/2025 ondansetron (ZOFRAN) 4 mg tablet Take 1 tablet (4 mg total) by mouth every 8 (eight) hours as needed for nausea or vomiting 10 tablet 5 Active Additional Information Patient not taking.Reported on 02/28/2025 spironolactone (ALDACTONE) 25 mg tabletIndicatio ns:chronic heart failure TAKE 1 TABLET (25 MG TOTAL) BY MOUTH DAILY. 90 tablet 1 5 08/16/19 26 Active Active Problems Problem Noted Date Diagnosed Date Right kidney stone 01/17/2025 Bilateral kidney stones - nonobstructing 024 Chronic systolic heart failure 12/01/2023 Apical mural thrombus 10/28/2023 Overview (12/02/2024): Noted at time of HF diagnoses Anticoagulation with Eliquis until Dec 2023 at which time LVEF improved to 40% and LV thrombus no longer present Assessment & Plan (10/28/2023 10:30 AM CDT): - on TTE 10/20; multilobal - continue apixaban Nonischemic cardiomyopathy 10/19/2023 Overview (03/16/2025): Diagnosis: 09/2023 TTE 09/2023: EF 12% C 09/2023: no Dz MRI: Four chamber dilatation with global hypokinesis. No late gadolinium enhancement. Findings can be seen with dilated cardiomyopathy. 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 Mcdonnell mid October - cMRI scheduled; Osteoarthritis of wrist 10/13/2023 Complete tear of radial jen ateral ligament of metacarpophalangeal (MCP) joint of finger 09/19/2023 Nontraumatic subluxation of extensor tendon at MCP joint of hand, right 12/27/2022 Deviated nasal septum 11/29/2022 Resolved Problems Problem Noted Date Diagnosed Date Resolved Date Nonischemic cardiomyopathy 11/26/2023 0 12/01/2023 Overview (11/26/2023): Cardiac MRI October 2023: Four chamber dilatation with global hypokinesis. No late gadolinium enhancement. Findings can be seen with dilated cardiomyopathy. LVEF 16% Encounters Date Type Department Care Team Description 04/15/2025 Telephone [facility] Cardiology [facility] 8th [place] [address] [place] [phone] Raven Leal 03/01/2025 Results Follow-Up [facility] Medicine Surgery [address] [facility] [address] [place] [phone] Abad Holley MD XR Abdomen 1 View AP 02/28/2025 11:36 AM CDT - 02/28/2025 11:59 PM CDT Hospital Encounter [facility] Imaging [address] [place] [address] Bilateral kidney stones Discharge Disposition: Discharge to home or self care 02/28/2025 11:20 AM CDT [facility] [address] [facility] [facility] [address] [place] [phone] Sabrina Manley NP Bilateral kidney stones (Primary Dx) 02/28/2025 Telephone [facility] Transplant Heart [address] [facility] [address] Mailstop [phone] [place] [address] Maria Alejandra Flores 02/28/2025 Telephone [facility] Medicine Cardiology [address] [facility] 8th [place] [address] [place] [address] Germania Mcdonnell MD 02/24/2025 2:00 PM CDT Office Visit [facility] Medicine Cardiology [address] [facility] 8th [place] [address] [place] [address] Germania Mcdonnell MD Nonischemic cardiomyopathy (HCC) (Primary Dx); Chronic systolic heart failure (HCC) 02/24/2025 12:02 PM CDT - 02/24/2025 11:59 PM CDT Hospital Encounter [facility] Cardiac Diagnostic Lab [address] [facility] [address] [place] [address] Nonischemic cardiomyopathy (HCC); Chronic systolic heart failure (HCC); Apical mural thrombus Discharge Disposition: Discharge to home or self care 02/11/2025 1:10 PM CDT Anesthesia Event [facility] Operating Room [address] [place] [address] Sukh Hammer MD 02/11/2025 12:45 PM CDT - 02/11/2025 1:45 PM CDT Surgery [facility] Operating Room [address] [place] [id number] Abad Holley MD LITHOTRIPSY EXTRACORPOREAL SHOCK WAVE - ESWL 02/11/2025 11:16 AM CDT - 02/11/2025 3:25 PM CDT Hospital Encounter [facility] Operating Room [address] [place] [address] Abad Holley MD Right kidney stone (Primary Dx) Discharge Disposition: Discharge to home or self care 02/11/2025 Telephone [facility] Medicine Surgery [address] [facility] Office [facility] [place] [phone] Abad Holley MD 02/11/2025 Orders [facility] [address] [facility] Office [facility], [address] [place] [address] Abad Holley MD Bilateral kidney stones (Primary Dx) from Last 3 Months Surgical History Surgery Date Site/Laterality Comments FIBULA HARDWARE REMOVAL 05/26/2017 - 05/25/2018 Left REPAIR / REINSERT BICEPS TEN DON AT ELBOW 05/26/2020 - 05/25/2021 Left LEG SURGERY 05/26/1994 - 05/25/1995 Left Medical History Medical History Date Comments Heart failure Family History Medical History Relation Name Comments Heart disease Father Relation Name Status Comments Father Alive Social History Tobacco Use Types Packs/Day Years Used Date Smoking Tobacco: Never Passive Smoke Exposure: Never Smokeless Tobacco: Never Tobacco Cessation:Counseling Given: Not Answered Alcohol Use Standard Drinks/Week Comments Yes 6 (1 standard drink = 0.6 oz pur e alcohol) [facility] Utilities Answer Date Recorded In the past 12 months has e electric, gas, oil, or water company threatened to shut off services in your [...] often do you attend chur ch or gnosticism services? More than 4 times per year 11/07/2023 Do you belong to any clubs o r organizations such as bahai groups, unions, fraternal or athletic groups, or [...] any time in the past 12 m [facility], were you homeless or living in a penitentiary (including now)? 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 Gender Identity Not on file Sexual Orientation Not on file Last Filed Vital Signs Vital Sign Reading Time Taken Comments Blood Pressure 112/65 02/24/2025 2:05 PM CDT Pulse 71 02/24/2025 2:05 PM CDT Temperature 36.6 C (97.8 F) 02/11/2025 2:40 PM CDT Respiratory Rate 18 02/11/2025 2:55 PM CDT Oxygen Saturation 99% 02/24/2025 2:05 PM CDT Inhaled Oxygen Concentration - - Weight 79 kg (174 lb 3.2 oz) 02/24/2025 2:05 PM CDT Height 182.9 cm (6') 02/24/2025 2:05 PM CDT Body Mass Index 23.63 02/24/2025 2:05 PM CDT Plan of Treatment Health Maintenance Due Date Last Done Comments Colon Cancer Screening-Colonoscopy 1975 Prostate Cancer Screening-PSA 1975 DTaP/Tdap/Td Vaccine (1 - Tdap) 1986 Hepatitis B Screening 1993 Regular Well Visit/Exam 18-64 1993 Pneumococcal vaccine <65 (1 of 2 - PCV) 1994 Depression Screening 12/09/2024 12/10/2023 Covid-19 Vaccine (3 - season) 2025, 12/12/2020 Influenza Vaccine (#1) 2025 Zoster Vaccine (1 of 2) 2025 Hepatitis C Screening Completed 10/20/2023 Medical Devices Implanted Type Area Bull Rider Device Identifier Shelf Expiration Date Model / Serial / Lot Screw Screw Right: Fingers [employer] Angio-Seal Vip 6fr Closere Device [id number] - [id number] - [id number] Implanted:Qty : 1 on 10/23/2023 by Devendra Lopez MD at [facility] Vascular Closure Device Right: Groin [employer] 06/25/2024 [id number] / [id number] / [id number] Explanted Type Area Bull Rider Device Identifier Shelf Expiration Date Model / Serial / Lot [employer] Corkscrew Fiberwire 2.2mm 4mm 17.9mm 2 Needle Wire Foot Ankle 2-0 Ar-1318ft - [id number] Implanted:Qty: 1 on 03/26/2023 by Rubén Perry MD at [facility] Right: Middle Finger [employer] 07/24/2027 AR-[id number] / / [id number] [employer] Corkscrew Fiberwire 2.2mm 4mm 17.9mm 2 Needle Wire Foot Ankle 2-0 Ar-1318ft - [id number] Implanted:Qty: 1 on 03/26/2023 by Rubén Perry MD at [facility] Right: Middle Finger [employer] 07/24/2027 AR-[id number] / / [id number] [employer] Corkscrew Fiberwire 2.7mm 7mm 17.9mm Needle Wire Foot Ankle 2-0 [id number] - [id number] Implanted:Qty: 1 on 03/26/2023 by Rubén Perry MD at [facility] Right: Middle Finger [employer] 01/23/2026 [id number] / / [id number] Procedures Procedure Name Priority Date/Time Associated Diagnosis Comments XR ABDOMEN AP 1 VIEW Schedule Routine, Read Routine (OP Routine) 02/28/2025 11:42 AM CDT Bilateral kidney stones POCT URINALYSIS DIPSTICK Routine 02/28/2025 11:11 AM CDT Bilateral kidney stones TRANSTHORACIC ECHO (TTE) COMPLETE W DOPPLER/CF W CONTRAST Routine 02/24/2025 1:46 PM CDT Nonischemic cardiomyopathy (HCC) Chronic systolic heart failure (HCC) Apical mural thrombus [place] AN PROCEDURE PLACEHOLDER Routine 02/11/2025 1:22 PM CDT [place] AN ELECTIVE SUPRAGLOTTIC AIRWAY Routine 02/11/2025 1:22 PM CDT LITHOTRIPSY EXTRACORPOREAL SHOCK WAVE - ESWL 02/11/2025 1:09 PM CDT Right kidney stone Case Notes MSI AWARE DONIER EGFR Routine 02/11/2025 11:58 AM CDT BASIC METABOLIC PANEL Routine 02/11/2025 11:58 AM CDT PRO B-TYPE NATRIURETIC PEPTIDE Routine 02/11/2025 11:58 AM CDT CBC WITHOUT DIFFERENTIAL Routine 02/11/2025 11:58 AM CDT XR KUB IP Routine 02/11/2025 11:30 AM CDT HEPATITIS PANEL, ACUTE Routine 10/20/2023 9:52 PM CDT from Last 3 Months or Most Recently Relevant to Health Maintenance Results * XR Abdomen 1 View AP (02/28/2025 11:42 AM CDT) Anatomical Region Laterality Modality Body, Abdomen N/A Computed Radiogr aphy 02/28/2025 6:31 PM CDT Impressions 02/28/2025 6:31 PM CDT No renal or ureteral calculi identified on limited study. This report was created using voice recognition software. Occasional wrong-word or sound-alike substitutions may have occurred due to the inherent limitations of voice recognition software. Read the above report carefully and recognize, using context, where substitutions may have occurred. Electronically signed by: Zara Helms M.D. Narrative 02/28/2025 6:31 PM CDT EXAMINATION: XR ABDOMEN AP 1 VIEW DATE: 02/28/2025 11:40 AM HISTORY: s/p lithotripsy. COMPARISON: 12/17/[address] chest abdomen [address] pelvis CT; 01/06/2025 and 02/11/2025 KUBs. FINDINGS: Again, evaluation is significantly limited by overlapping bowel gas and stool. No renal or ureteral calculi are identified. Multiple left-sided pelvic phleboliths are unchanged. Moderate amount of retained stool in the colon. No grossly dilated bowel loops. Visualized osseous structures are intact. Procedure Note Zara Helms MD - 02/28/2025 EXAMINATION: XR ABDOMEN AP 1 VIEW DATE: 02/28/2025 11:40 AM HISTORY: s/p lithotripsy. COMPARISON: 12/17/2023 chest abdomen and pelvis CT; 01/06/2025 and 02/11/2025 KUBs. FINDINGS: Again, evaluation is significantly limited by overlapping bowel gas and stool. No renal or ureteral calculi are identified. Multiple left-sided pelvic phleboliths are unchanged. Moderate amount of retained stool in the colon. No grossly dilated bowel loops. Visualized osseous structures are intact. IMPRESSION: No renal or ureteral calculi identified on limited study. This report was created using voice recognition software. Occasional wrong-word or sound-alike substitutions may have occurred due to the inherent limitations of voice recognition software. Read the above report carefully and recognize, using context, where substitutions may have occurred. Electronically signed by: Zara Helms M.D. Abad Holley MD IMG XR PROCEDURES Final Res ult * (ABNORMAL) POCT urinalysis dipstick (02/28/2025 11:11 AM CDT) Pathologist [facility] Color, Urine, POC Yellow Clarity, ur, POC Clear Clear Glucose, ur, POC 500.(A) Negative Bilirubin, ur, POC Negative Negative Ketones, ur, POC Trace(A) Negative Specific [place], POC 1.020 1.003 - 1.030 Blood, ur, POC Negative Negative pH, ur, POC 6.5 5.0 - 8.0 Protein, ur, POC 30.(A) Negative Urobilinogen, urine, POC 1.0 0.2 - 1.0 mg/dL Nitrite, ur, POC Negative Negative Leukocytes, ur, POC Negative Negative Lot Number 0 Urine 02/28/2025 11:1 1 AM CDT Sabrina Manley MEDICAL DONATION PROFESSIONAL POINT OF CARE TEST ORDERAB LES Final Result * TRANSTHORACIC ECHO (TTE) COMPLETE W DOPPLER/CF W CONTRAST (02/24/2025 1:46 PM CDT) Pathologist [facility] EF Mod BP 54 % CONS SCIMAGE Anatomical Region Laterality Modality Ultrasound 02/24/2025 12:4 6 PM CDT Narrative 02/24/2025 2:17 PM CDT [facility] Cardiac [place] [address] Transthoracic Echocardiographic Report Patient Name: PROMISE BROOKS R : 1975 (49y 10m) Sex: M Study Date: 02/24/2025 12:46:07 PM Ht(Inch): 72 Wt(Lb): 179.9 BSA: 2.04 Indirect Sales Exec: Cathie Price RDCS Location: [facility] Order Provider: GERMANIA MCDONNELL Heart Rate: 66 BMI: 24.4 BP: 120 / 60 Ref Provider: HANNAH MCDONNELLIN PROCEDURES: Echocardiographic Report: Transthoracic complete echo with strain imaging and contrast, 2D, spectral and tissue Doppler, color flow Doppler, M-mode. Contrast: Contrast Enhancement was Employed: After initial imaging due to sub- optimal quality related to co-morbidity defined by patient's body habitus and due to suboptimal image quality with inadequate visualization of at least 2 of 16 LV wall segments in any view after initial imaging. Perflutren contrast was administered using the volume necessary to obtain adequate images. 0.8 ml Optison Administered, (2.2 ml wasted). INDICATIONS: I42.8 Other cardiomyopathies, I50.22 Chronic systolic (congestive) heart failure, and I51.3 Intracardiac thrombosis, not elsewhere classified. CONCLUSIONS: 1. Severely dilated left ventricle based on volume index. Normal LV wall thickness. Normal left ventricular systolic function. The Ejection Fraction (Rae's) is measured at 54 %. The average global longitudinal strain is borderline. 2. Normal right ventricular size. Moderate right ventricular hypokinesis. COMPARISONS: Compared with prior study, (2023) EF was 40 % before and it is 54% today. ATTESTATION: I have personally reviewed and interpreted this study without fellow or resident. DISCLAIMER: The study images and the final report will be retained in the patient chart by the Echo Laboratory for the legally required time period. This chart constitutes the legal record of any testing performed. FINDINGS: Left Ventricle: Severely dilated left ventricle based on volume index. Normal LV wall thickness. Normal left ventricular systolic function. The Ejection Fraction (Rae's) is measured at 54 %. The average global longitudinal strain is borderline. The LV global strain is: -16.6 %. Trabeculated LV. Right Ventricle: Normal right ventricular size. Moderate right ventricular hypokinesis. Left Atrium: The left atrium is normal in size. Right Atrium: The right atrium is normal in size. 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 Mitral Valve: Normal mitral valve structure. No mitral regurgitation. No stenosis present. Aortic Valve: Normal trileaflet aortic valve. Mild aortic valve regurgitation. Aortic valve dimensionless index is 0.91. Tricuspid Valve: Normal tricuspid valve structure. No tricuspid regurgitation. No tricuspid valve stenosis. Pulmonic Valve: Normal Pulmonic Valve Structure. Mild pulmonic regurgitation. Pericardium: Normal pericardium without pericardial effusion. Aorta: Mild aortic root dilation at sinuses of Valsalva. The ascending aorta is normal in size when indexed. IVC: The IVC was <2.1 cm and collapsibility <50%. (est. RA pressure 6-10 mmHg). PASP: Normal estimated pulmonary artery systolic pressure. Rhythm: Normal Sinus rhythm was seen during the study. MEASUREMENTS: 2D/MM Value Range Doppler Value Range LVIDd 2D 5.85 cm [ 4.20 - 5.80 ] AV Peak Nelson 1.1 m/s [ 1.0 - 1.7 ] LVIDs 2D 4.33 cm [ 2.50 - 4.00 ] AV Peak PG 4.84 mmHg IVSd 2D 0.95 cm [ 0.60 - 1.00 ] AV Mean PG 3 mmHg LVPWd 2D 0.95 cm [ 0.60 - 1.00 ] AV VTI 21.2 cm LV Thickness Ratio 1.0 LVOT Peak Nelson 1.0 m/s [ 0.7 - 1.1 ] LV FS 2D 26.01 % [ 25.00 - 43.00 ] LVOT Peak PG 4.00 mmHg LV Mass 2D 227.72 g LVOT Mean PG 2 mmHg LV Mass Index 2D 111.81 g/m2 LVOT VTI 19.2 cm RWT 0.32 LVOT Diam 2.38 cm EDV Mod BP 220.70 ml [ 62.00 - 150.00 ] MURIEL VTI 4.03 cm2 LV EDV Index 108.37 ml/m2 LVOT/AV VTI 0.91 - Dimensionless index (DVI) ESV Mod BP 101.34 ml [ 21.00 - 61.00 ] AI Peak Nelson 4.0 m/s EF Mod BP 54 % [ 52 - 72 ] AI Peak PG 64 mmHg LV GLS -16.6 % [ -25.0 - -18.0 ] AI Decel Time 1535.43 sec LA Length 4C 5.31 cm AI Decel [place]berg 2.61 m/s2 LA Length 2C 4.94 cm AI PHT 445.28 msec LA Volume BP 48.36 ml MV E Peak Nelson 0.5 m/s [ 0.6 - 1.3 ] LA Volume Index 23.75 ml/m2 [ 16.00 - 34.00 ] MV A Peak Nelson 0.8 m/s [ 1.0 - 1.2 ] RV Base Dimen 2D 4.0 cm [ 2.5 - 4.2 ] MV E/A 0.6 ratio [ 0.8 - 1.5 ] TAPSE 1.17 cm [ 1.71 - 5.00 ] MV Decel Time 192.80 msec [ 104.00 - 258.00 ] RA Volume 39.22 ml Med E` Nelson 5.2 cm/sec [ 8.0 - 25.0 ] RA Volume Index 19.26 ml/m2 Lat E` Nelson 9.1 cm/sec [ 10.0 - 25.0 ] IVC Diam 1.09 cm Average E/E` 6.99 IVC Collapse 49 % RV S` 7.51 cm/sec AoR Diam 2D 3.91 cm [ 3.10 - 3.70 ] PV Peak Nelson 0.6 m/s [ 0.4 - 0.8 ] Ao Root Index 1.92 cm/m2 [ 1.00 - 2.00 ] PV Peak PG 1.44 mmHg Asc Ao Diam 2D 3.34 cm PI Peak Nelson 1.7 m/s Asc Ao Index 1.64 cm/m2 PI Peak PG 12 mmHg PI PHT 234.16 sec Electronically Signed By: Ari Soto MD 02/24/2025 2:17:21 PM CDT Procedure Note Ari Soto MD - 02/24/2025 [facility] Cardiac [place] [address] Transthoracic Echocardiographic Report Patient Name: PROMISE BROOKS R : 1975 (49y 10m) Sex: M Study Date: 02/24/2025 12:46:07 PM Ht(Inch): 72 Wt(Lb): 179.9 BSA: 2.04 Indirect Sales Exec: Cathie Price RDCS Location: [facility] Order Provider:GERMANIA MCDONNELL Heart Rate: 66 BMI: 24.4 BP: 120 / 60 Ref Provider: GERMANIA MCDONNELL PROCEDURES: Echocardiographic Report: Transthoracic complete echo with strain imagingand contrast, 2D, spectral and tissue Doppler, color flow Doppler, M-mode. Contrast: Contrast Enhancement was Employed: After initial imaging due tosub- optimal quality related to co-morbidity defined by patient's body habitus and dueto suboptimal image quality with inadequate visualization of at least 2 of 16 LV wallsegments in any view after initial imaging. Perflutren contrast was administered using thevolume necessary to obtain adequate images. 0.8 ml Optison Administered, (2.2 mlwasted). INDICATIONS: I42.8 Other cardiomyopathies, I50.22 Chronic systolic (congestive) heartfailure, and I51.3 Intracardiac thrombosis, not elsewhere classified. CONCLUSIONS: 1. Severely dilated left ventricle based on volume index. Normal LV wallthickness. Normal left ventricular systolic function. The Ejection Fraction(Rae's) is measured at 54 %. The average global longitudinal strain is borderline. 2. Normal right ventricular size. Moderate right ventricularhypokinesis. COMPARISONS: Compared with prior study, (2023) EF was 40 % before and it is 54%today. ATTESTATION: I have personally reviewed and interpreted this study without fellow orresident. DISCLAIMER: The study images and the final report will be retained in the patientchart by the Echo Laboratory for the legally required time period. This chart constitutesthe legal record of any testing performed. FINDINGS: Left Ventricle: Severely dilated left ventricle based on volume index.Normal LV wall thickness. Normal left ventricular systolic function. The EjectionFraction (Rae's) is measured at 54 %. The average global longitudinal strain is borderline.The LV global strain is: -16.6 %. Trabeculated LV. Right Ventricle: Normal right ventricular size. Moderate right ventricularhypokinesis. Left Atrium: The left atrium is normal in size. Right Atrium: The right atrium is normal in size. 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 Mitral Valve: Normal mitral valve structure. No mitral regurgitation. Nostenosis present. Aortic Valve: Normal trileaflet aortic valve. Mild aortic valveregurgitation. Aortic valve dimensionless index is 0.91. Tricuspid Valve: Normal tricuspid valve structure. No tricuspidregurgitation. No tricuspid valve stenosis. Pulmonic Valve: Normal Pulmonic Valve Structure. Mild pulmonicregurgitation. Pericardium: Normal pericardium without pericardial effusion. Aorta: Mild aortic root dilation at sinuses of Valsalva. The ascendingaorta is normal in size when indexed. IVC: The IVC was <2.1 cm and collapsibility <50%. (est. RA pressure 6-10mmHg). PASP: Normal estimated pulmonary artery systolic pressure. Rhythm: Normal Sinus rhythm was seen during the study. MEASUREMENTS: 2D/MM Value Range DopplerValue Range LVIDd 2D 5.85 cm [ 4.20 - 5.80 ] AV Peak Vel1.1 m/s [ 1.0 - 1.7 ] LVIDs 2D 4.33 cm [ 2.50 - 4.00 ] AV Peak PG4.84 mmHg IVSd 2D 0.95 cm [ 0.60 - 1.00 ] AV Mean PG3 mmHg LVPWd 2D 0.95 cm [ 0.60 - 1.00 ] AV VTI21.2 cm LV Thickness Ratio 1.0 LVOT Peak Vel1.0 m/s [ 0.7 - 1.1 ] LV FS 2D 26.01 % [ 25.00 - 43.00 ] LVOT Peak PG4.00 mmHg LV Mass 2D 227.72 g LVOT Mean PG2 mmHg LV Mass Index 2D 111.81 g/m2 LVOT VTI19.2 cm RWT 0.32 LVOT Diam2.38 cm EDV Mod BP 220.70 ml [ 62.00 - 150.00 ] MURIEL VTI4.03 cm2 LV EDV Index 108.37 ml/m2 LVOT/AV VTI0.91 - Dimensionless index (DVI) ESV Mod BP 101.34 ml [ 21.00 - 61.00 ] AI Peak Vel4.0 m/s EF Mod BP 54 % [ 52 - 72 ] AI Peak PG64 mmHg LV GLS -16.6 % [ -25.0 - -18.0 ] AI Decel Ejwx4863.43 sec LA Length 4C 5.31 cm AI Decel Slope2.61 m/s2 LA Length 2C 4.94 cm AI XJV744.28 msec LA Volume BP 48.36 ml MV E Peak Vel0.5 m/s [ 0.6 - 1.3 ] LA Volume Index 23.75 ml/m2 [ 16.00 - 34.00 ] MV A Peak Vel0.8 m/s [ 1.0 - 1.2 ] RV Base Dimen 2D 4.0 cm [ 2.5 - 4.2 ] MV E/A0.6 ratio [ 0.8 - 1.5 ] TAPSE 1.17 cm [ 1.71 - 5.00 ] MV Decel Vjkg895.80 msec [ 104.00 - 258.00 ] RA Volume 39.22 ml Med E` Vel5.2 cm/sec [ 8.0 - 25.0 ] RA Volume Index 19.26 ml/m2 Lat E` Vel9.1 cm/sec [ 10.0 - 25.0 ] IVC Diam 1.09 cm Average E/E`6.99 IVC Collapse 49 % RV S`7.51 cm/sec AoR Diam 2D 3.91 cm [ 3.10 - 3.70 ] PV Peak Vel0.6 m/s [ 0.4 - 0.8 ] Ao Root Index 1.92 cm/m2 [ 1.00 - 2.00 ] PV Peak PG1.44 mmHg Asc Ao Diam 2D 3.34 cm PI Peak Vel1.7 m/s Asc Ao Index 1.64 cm/m2 PI Peak PG12 mmHg PI PHT 234.16 sec Electronically Signed By: Ari Soto MD 02/24/2025 2:17:21 PM CDT us Germania Mcdonnell MD CV ECHO PROCEDURES Final Result * [place] AN ELECTIVE SUPRAGLOTTIC AIRWAY, [place] AN PROCEDURE PLACEHOLDER (02/11/2025 1:22 PM CDT) Narrative Fabio Bailon CRNA - 02/11/2025 1:22 PM CDT Fabio Bailon CRNA 02/11/2025 1:22 PM Airway Patient location: OR Urgency: elective Date/time: 02/11/2025 1:13 PM Indications for airway management: anesthesia Difficult airway: no Staff: Placed by: GAMING CAGE WORKER: Fabio Bailon CRNA Emergent airway documentation: Risks and benefits discussed: yes Consent obtained: yes Consent given by: patient Airway prep: Preoxygenated: yes Patient position: sniffing MILS maintained throughout: yes Mask difficulty assessment: 0 - not attempted Spontaneous ventilation during airway: absent Sedation level during airway: GA Final airway details: Final airway type: supraglottic airway Final supraglottic airway: IGel SGA size: 5 Number of attempts: 1 Planned trial extubation: yes Result [facility] Sukh Hammer MD ANESTHESIA ORDERABLES Fi nal Result * eGFR (02/11/2025 11:58 AM CDT) eGFR >90 >=60 mL/min/1. 73 m2 Comment: Interpretive Data Reference Interval Normal >/= 90 mL/min/1.73m2 Mildly decreased* 60 - 89 mL/min/1.73m2 Mildly to moderately decreased 45 - 59 mL/min/1.73m2 Moderately to severely decreased 30 - 44 mL/min/1.73m2 Severely decreased 15 - 29 mL/min/1.73m2 Kidney Failure < 15 mL/min/1.73m2 *Relative to young adult level Estimated glomerular filtration rate is determined by the 2020 CKD-EPI equation recommended by the National Kidney Foundation (A Unifying Approach to GFR Estimation: Recommendations of the NKF-ASK Task Force on Reassessing the Inclusion of Race in Diagnosing Kidney Disease, JASN 2020). The CKD-EPI equation should not be used for patients with unstable renal function and has not been validated in children and those over 70. Current interpretive data was last reviewed 2021. Blood 02/11/2025 11:5 8 AM CDT 02/11/2025 12:16 PM CDT Cee Figueroa NP LAB BLOOD ORDERABLES Final Result [facility] [address] Department [place] [address] * (ABNORMAL) Pro B-type natriuretic peptide (02/11/2025 11:58 AM CDT) NT-proBNP 969(H) <=300 pg/mL Comment: Interpretive Comments: A. Dyspnea in Acute Care Setting All Ages: < 300 pg/ml, acute heart failure unlikely. < 50 yrs: 300 - 450 pg/ml, further investigation warranted. > 450 pg/ml, acute heart failure likely. 50 - 74 yrs: 300 - 900 pg/ml, further investigation warranted. > 900 pg/ml, acute heart failure likely . > or = 75 yrs: 450 - 1800 pg/ml, further investigation warranted. > 1800 pg/ml, acute heart failure likely. B. Non-acute Setting < 75 yrs < 125 pg/ml, rules out heart failure. > or = 125 pg/ml, further investigation warranted. > or = 75 yrs < 450 pg/ml, rules out heart failure. > or = 450 pg/ml, further investigation warranted. - Knowledge of each individual patient's NT-proBNP range may be more useful than using similar cut-points for every patient. Please note that marked elevations in NT-proBNP levels may be observed in state other than Left Ventricular Congestive Failure, including: acute coronary syndromes, right heart strain/failure (including pulmonary embolism and cor pulmonale), critical illness, renal failure, as well as advanced age. - References: 1. Buddy MAZARIEGOS et.al. Eur Heart J. 2006:27:330-337. 2. Bryanna SCHMIDT, David DAVSI. J. AM Jen Cardiol: Cardiovasc Imag. 2009;2: 216- 225. Interpretive Data Last Revised Date: 2018. Blood 02/11/2025 11:5 8 AM CDT 02/11/2025 12:16 PM CDT Cee Figueroa MEDICAL DONATION PROFESSIONAL LAB BLOOD ORDERABLES Final Result Performing Organization Address City/[facility]/ZIP Co de Phone Number [address] Department [place] [address] * (ABNORMAL) CBC without differential (02/11/2025 11:58 AM CDT) WBC 5.46 3.80 - 9.90 K/cumm Hgb 15.3 13.0 - 17.5 g/dL [facility] Hct 42.7 38.9 - 50.3 % [facility] Plt 174 150 - 400 K/cumm [facility] MPV 9.9 9.1 - 12.3 fL [facility] RBC 4.51 4.30 - 5.80 M/cumm [facility] MCV 94.7 81.3 - 96.4 fL [facility] MCH 33.9(H) 27.1 - 33.3 pg [facility] MCHC 35.8(H) 32.3 - 35.7 g/dL [facility] RDW CV 11.2 11.1 - 14.9 % [facility] RDW SD 38.9 35.7 - 48.1 fL [facility] NRBC abs 0.00 0.00 - 0.01 K/cumm [facility] Blood 02/11/2025 11:5 8 AM CDT 02/11/2025 12:16 PM CDT Cee Figueroa NP LAB BLOOD ORDERABLES Final Result Performing Organization Address City/[facility]/ZIP Co de Phone Number [address] Department [place] [address] * (ABNORMAL) Basic metabolic panel (02/11/2025 11:58 AM CDT) Sodium 139 135 - 145 mmol/L Potassium, pl 4.0 3.3 - 4.9 mmol/L [facility] Chloride 102 97 - 110 mmol/L [facility] CO2 24 22 - 32 mmol/L [facility] Anion gap 13 2 - 15 mmol/L [facility] BUN 10 6 - 25 mg/dL [facility] Creatinine 0.59(L) 0.80 - 1.30 mg/dL [facility] Glucose 97 70 - 199 mg/dL [facility] Comment: Interpretive Data Fasting glucose >/= 126 mg/dl is diagnostic for diabetes. Fasting is defined as no caloric intake for at least 8 hours. Fasting glucose between 100 mg/dl to 125 mg/dl is diagnostic of prediabetes. In a patient with classic symptoms of hyperglycemia or hyperglycemic crisis, a random glucose >/= 200 mg/dl is diagnostic for diabetes. In the absence of unequivocal hyperglycemia, results should be confirmed by repeat testing. The classification and Diagnosis of Diabetes Diabetes Care 2021; 46: S19-S40. Current interpretive data was last revised 2022. Calcium 9.6 8.5 - 10.3 mg/dL [facility] Blood 02/11/2025 11:5 8 AM CDT 02/11/2025 12:16 PM CDT Cee Figueroa MEDICAL DONATION PROFESSIONAL LAB BLOOD ORDERABLES Final Result [facility] [address] [facility] Department [place] [address] * XR Kub (02/11/2025 11:30 AM CDT) Anatomical Region Laterality Modality Body, Abdomen N/A Computed Radiogr aphy 02/11/2025 11:4 9 AM CDT Impressions 02/11/2025 11:49 AM CDT Large amount air and stool throughout colon obscuring details of both kidneys. Cannot assess for renal stones. Electronically signed by: Darshana Redding M.D. Narrative 02/11/2025 11:49 AM CDT ABDOMEN 1 VIEW DATE: 02/11/2025 11:25 AM INDICATION: right kidney stone TECHNIQUE: AP supine COMPARISON: 01/06/2025 FINDINGS: Large amount air and stool throughout colon obscuring details of both kidneys. There is air within stomach. Cannot assess for renal stones. Unchanged multiple left pelvic phlebolith. Procedure Note Darshana Redding MD - 02/11/2025 ABDOMEN 1 VIEW DATE: 02/11/2025 11:25 AM INDICATION: right kidney stone TECHNIQUE: AP supine COMPARISON: 01/06/2025 FINDINGS: Large amount air and stool throughout colon obscuring details of both kidneys. There is air within stomach. Cannot assess for renal stones. Unchanged multiple left pelvic phlebolith. IMPRESSION: Large amount air and stool throughout colon obscuring details of both kidneys. Cannot assess for renal stones. Electronically signed by: Darshana Redding M.D. us Abad Holley MD IMG XR PROCEDURES Final Res ult * Hepatitis panel, acute Blood (10/20/2023 9:52 PM CDT) Hep A IgM Nonreactive Nonreactive Hep B core IgM Nonreactive Nonreactive [facility] Hep C Ab Nonreactive Nonreactive [facility] Comment:Antibodies to HCV no t detected. Does NOT exclude the possibility of recent exposure to HCV. Current interpretive data was last revised on 22 HepBsAg Nonreactive Nonreactive [facility] Blood 10/20/2023 9:52 PM CDT 10/20/2023 10:43 PM CDT Mayelin Mcclure MD LAB MICROBIOLOGY - GENERAL ORD ERABLES Final Result [facility] [address] [facility] [place] [address] from Last 3 Months or Most Recently Relevant to Health Maintenance Insurance ANTHEM ACCESS CHOICE ANTHEM ACCESS CHOICE ANTHEM ACCESS CHOICE Advance Directives For more information, please contact: [phone] * Full Code (Latest Code Status on File) Date Activated Date Inactivated Comments 10/19/2023 4:42 AM 10/24/2023 7:55 PM * Full Code Date Activated Date Inactivated Comments 03/26/2023 1:47 PM 03/26/2023 6:34 PM Care Teams Medical Receptionist Assistant Relationship Specialty Start Date End Date Chago Ngo MD [address] [place] [address] PCP - General Family Medicine 11/18/22 [place] [address] [place] [address] Surgeon Orthopedic Surgery 03/26/23 Beverly Lenz RN [address] [place] [address] SHOP Outpatient Steward/Stewardess Smoke Room 10/27/23 Germania Mcdonnell MD [address] [place] [address] Supervisor Screen Printing Transplant 10/19/23 Raven Tavera, AKOSUA [address] [place] [address] Heart Failure Coordinator Automated Manufacturing Instructor 10/19/23 Xochilt Maciel, AKOSUA Automated Manufacturing Instructor 11/25/23 Yazan Sorto Primary [employer] 02/10/25 Sabrina Manley NP [address] [place] [address] Nurse Practitioner Nurse Practitioner 02/11/25
[2025-04-19 08:42] VITALS: BP 128/72; PULSE 68; RESP 18; TEMP 36.1; O2SAT 98; BMI 24.1
[2025-04-19] MEDS: LACTATED RINGERS 1,000 ML 150 ML IV CONT (08:51)
--- NOTE | 2025-04-19 09:06 | PM.HPGS ---
History of Present Illness History of Present Illness Consent: Risks, benefits, and alternatives have been discussed and questions answered. Patient agrees to proceed with procedure. Chief complaint: Encounter for screening for malignant neoplasm of Narrative: Alfonso Brooks is a 50 year old male here for first screening colonoscopy Review of Systems Review of Systems: All systems reviewed & are unremarkable except as noted in HPI and below PMFSH Past Medical History Medical History (Updated 04/19/25 @ 09:07 by Alfonso Chao MD) Colon cancer screening Family History Family History (Updated 10/16/23 @ 22:24 by Evelina Murray RN) Father Heart disease Hypertension Valvular heart disease Social History Social History Smoking status: Never smoker Alcohol intake: current Drinks per week: 4 Substance use: never Substance use type: does not use Do You Feel Safe in your Home?: Yes Lack of Transportation: No Lack of Food: Never True Current Housing: I Have Housing Concerned About Future Housing: No Difficulty Paying Gas/Electric Bills: No Difficulty Paying for Meds: No Currently Unemployed: No Education: Decline to Answer Difficulty w/ Childcare or Family Care: No Living arrangements: alone Spiritual care concerns: No Meds Home Medications and Allergies Home Medications ?Medication ?Instructions ?Recorded ?Confirmed ?Type empagliflozin 10 mg tablet 10 mg PO DAILY 03/31/25 04/19/25 History (Jardiance) metoprolol succinate 200 mg 200 mg PO DAILY 03/31/25 04/19/25 History tablet,extended release 24 hr sacubitril 49 mg-valsartan 51 mg 1 tablet PO DAILY 03/31/25 04/19/25 History tablet (Entresto) spironolactone 25 mg tablet 25 mg PO DAILY 03/31/25 04/19/25 History Allergies Allergy/AdvReac Type Severity Reaction Status Date / Time No Known Allergies Allergy Verified 04/19/25 08:41 Vital Signs Vital Signs - 24 hr 04/19/25 08:42 Temperature 97 F L Pulse Rate 68 Respiratory Rate 18 Blood Pressure 128/72 Pulse Oximetry 98 Oxygen Delivery Room Air Exam Const: General: comfortable and no acute distress HENMT: Face/Nose/Sinus: Normal nares present Eyes: General: appearance normal, both eyes and all related structures Neck: Neck: no JVD Resp: Auscultation: clear to auscultation bilaterally Cardio: Rate: regular rate Rhythm: regular rhythm GI: Inspection: non-distended GI Palp: Yes Soft to palpation Skin: General skin exam: normal color Extrem: General: normal to inspection Psych: Mental Status: mental status grossly normal Assessment and Plan Assessment and plan (1) Colon cancer screening: Code(s): Z12.11 - Encounter for screening for malignant neoplasm of colon Status: Acute Assessment and Plan: colonoscopy
--- NOTE | 2025-04-19 09:12 | WPDANESEPPF ---
Anes - Initial Pre Proc Eval Procedure: Operation Date: 04/19/25 09:30 Proposed Procedures p Screening Colonoscopy - Alfonso Chao MD Date/Time: 04/19/25 09:12 Surgeon: Alfonso Chao MD Pre Op Diagnosis: Encounter for screening for malignant neoplasm of Patient Data Age: 50 Gender: M Height: 1.83 m Weight: 80.7 kg Last Vital Signs Temp 97 F L 04/19/25 08:42 Pulse 68 04/19/25 08:42 Resp 18 04/19/25 08:42 BP 128/72 04/19/25 08:42 Pulse Ox 98 04/19/25 08:42 O2 Del Method Room Air 04/19/25 08:42 Allergies Allergy/AdvReac Type Severity Reaction Status Date / Time No Known Allergies Allergy Verified 04/19/25 08:41 Home Medications ?Medication ?Instructions ?Recorded ?Confirmed ?Type empagliflozin 10 mg tablet 10 mg PO DAILY 03/31/25 04/19/25 History (Jardiance) metoprolol succinate 200 mg 200 mg PO DAILY 03/31/25 04/19/25 History tablet,extended release 24 hr sacubitril 49 mg-valsartan 51 mg 1 tablet PO DAILY 03/31/25 04/19/25 History tablet (Entresto) spironolactone 25 mg tablet 25 mg PO DAILY 03/31/25 04/19/25 History Patient hx anesthesia problems: none Family hx anesthesia problems: none Results Review: All pre-operative results and documents have been reviewed as part of the pre-operative evaluation. [facility] Past Medical History Medical History Colon cancer screening Family History Family History Father Heart disease Hypertension Valvular heart disease Social History Social History Smoking status: Never smoker Alcohol intake: current Drinks per week: 4 Substance use: never Substance use type: does not use Do You Feel Safe in your Home?: Yes Lack of Transportation: No Lack of Food: Never True Current Housing: I Have Housing Concerned About Future Housing: No Difficulty Paying Gas/Electric Bills: No Difficulty Paying for Meds: No Currently Unemployed: No Education: Decline to Answer Difficulty w/ Childcare or Family Care: No Living arrangements: alone Spiritual care concerns: No Anes - Eval Final PreProcedure Day of Procedure 04/19/25 09:12 Patient weight: normal Lungs: normal air movement Airway: Mallampati scale class II Neurological: alert and oriented Last oral intake: >/= 8 hours ASA classification: III Emergent: no Anesthetic plan: proceed Anesthesia type and monitoring: general GIVS and standard monitoring Results Review: All pre-operative results and documents have been reviewed as part of the pre-operative evaluation. Hx of severe Cardiomyopathy 2023 w LVEF 12%, treated medically at [facility] and now LVEF 54%. Informed Consent: The patient's anesthetic plan and its attendant risks and benefits were discussed with the patient/family/POA. Questions were solicited and answers provided to the satisfaction of the patient/family/POA.
[2025-04-19 09:31] VITALS: BP 106/64; PULSE 75; RESP 20; O2SAT 96
[2025-04-19 09:41] VITALS: BP 107/59; PULSE 68; RESP 20; O2SAT 100
[2025-04-19 09:51] VITALS: BP 129/65; PULSE 70; RESP 20; O2SAT 100
== END 2025-04-19 10:01 | disposition home or self-care (01) ==
PROVIDERS: PCP Emergency Medicine; Referring Provider Emergency Medicine; Visit Provider Internal Medicine Gastroenterology
PROC: 0DJD8ZZ Inspection of Lower Intestinal Tract, Via Natural or Artificial Opening Endoscopic (ICD-10-PCS; CPT 45378; principal; 2025-04-19 09:30)
DX: Z12.11 Encounter for screening for malignant neoplasm of colon (principal); K64.8 Other hemorrhoids; I10 Essential (primary) hypertension; Z79.84 Long term (current) use of oral hypoglycemic drugs; Z86.79 Personal history of other diseases of the circulatory system; Z82.49 Family history of ischemic heart disease and other diseases of the circulatory system
CPT/HCPCS: 45378; J2003; J2704; J7120